=== PATIENT | female | born 1950 | race Caucasian/White ===

== ENCOUNTER → 2017-04-16 | Outpatient (CLI) | payer MEDICARE ==
[2017-04-16 12:53] LABS: BASO % 0.6 % (0.0-1.0); EOS # 0.2 K/mm3 (0.0-0.50); EOS % 3.8 % (0.0-3.0); LARGE UNSTAINED CELL # 0.1 K/mm3 (0.0-0.4); LARGE UNSTAINED CELL % 2.4 % (0.0-4.0); LYMPH # 1.9 K/mm3 (1.5-4.5); LYMPH % 39.4 % (24.0-44.0); MEAN CORPUSCULAR HGB CONC 34.3 g/dl (32.0-36.5); MEAN CORPUSCULAR VOLUME 96.2 fl (80.0-96.0); MONO # 0.5 K/mm3 (0.0-0.8); MONO % 9.9 % (0.0-5.0); NEUTROPHILS % 43.9 % (36.0-66.0); PLATELET COUNT, AUTOMATED 332 k/mm3 (150-450); RED CELL DISTRIBUTION WIDTH 13.2 % (11.5-14.5); WHITE BLOOD COUNT 4.6 K/mm3 (4.0-10.0)
[2017-04-16 13:11] LABS: ALBUMIN 4.1 GM/DL (3.2-5.2); ALBUMIN/GLOBULIN RATIO 1.21 (1.00-1.93); ALKALINE PHOSPHATASE 89 U/L (45-117); ALT/SGPT 44 U/L (12-78); ANION GAP 10 MEQ/L (8-16); AST/SGOT 34 U/L (15-37); BILIRUBIN,TOTAL 0.5 MG/DL (0.2-1.0); BLOOD UREA NITROGEN 17 MG/DL (7-18); CALCIUM LEVEL 9.5 MG/DL (8.8-10.2); CARBON DIOXIDE LEVEL 25 MEQ/L (21-32); CHLORIDE LEVEL 104 MEQ/L (98-107); CHOLESTEROL LEVEL 232 MG/DL (<200); CREATININE FOR GFR 0.85 MG/DL (0.55-1.02); FREE T4 0.84 NG/DL (0.76-1.46); GLOMERULAR FILTRATION RATE > 60.0 (>45); GLUCOSE, FASTING 95 MG/DL (80-110); POTASSIUM SERUM 4.3 MEQ/L (3.5-5.1); SODIUM LEVEL 139 MEQ/L (136-145); TOTAL PROTEIN 7.5 GM/DL (6.4-8.2); TRIGLYCERIDES LEVEL 122 MG/DL (<150)
== END ==
LOC: M SMT 08:05
PROVIDERS: ATTEND Physician Assistant Medical
DX: E03.9 Hypothyroidism, unspecified (principal); I10 Essential (primary) hypertension; E55.9 Vitamin D deficiency, unspecified; Z13.220 Encounter for screening for lipoid disorders

== ENCOUNTER → 2020-02-12 | Outpatient (REF) | payer MEDICARE ==
[2020-02-12 16:35] LABS: CHLAMYDIA DNA AMPLIFICATION NEGATIVE (NEGATIVE); GC DNA AMPLIFICATION NEGATIVE (NEGATIVE)
== END ==
LOC: M LAB REF 14:33
PROVIDERS: ATTEND Family Medicine
DX: N39.0 Urinary tract infection, site not specified (principal); N76.0 Acute vaginitis

== ENCOUNTER → 2020-04-15 | Outpatient (REF) | payer MEDICARE | LOC: M LAB REF 15:58 | PROVIDERS: ATTEND Family Medicine | DX: N76.0 Acute vaginitis (principal) ==

== ENCOUNTER → 2021-02-16 | Outpatient (REF) | payer MEDICARE ==
[2021-02-16 18:10] LABS: BASO % 0.2 % (0.0-1.0); EOS % 0.6 % (0.0-3.0); HEMATOCRIT 30.7 % (36.0-47.0); HEMOGLOBIN 10.2 g/dl (12.0-15.5); LYMPH # 1.3 10^3/uL (1.5-5.0); LYMPH % 27.3 % (24.0-44.0); MEAN CORPUSCULAR HEMOGLOBIN 33.3 pg (27.0-33.0); MEAN CORPUSCULAR HGB CONC 33.2 g/dl (32.0-36.5); MEAN CORPUSCULAR VOLUME 100.3 fl (80.0-96.0); MONO # 0.6 10^3/uL (0.0-0.8); MONO % 11.9 % (2.0-8.0); NEUTROPHILS # 2.8 10^3/uL (1.5-8.5); NEUTROPHILS % 59.8 % (36.0-66.0); PLATELET COUNT, AUTOMATED 510 10^3/uL (150-450); RED BLOOD COUNT 3.06 10^6/uL (4.00-5.40); WHITE BLOOD COUNT 4.7 10^3/uL (4.0-10.0)
[2021-02-16 18:25] LABS: ALT/SGPT 54 U/L (12-78); BILIRUBIN,TOTAL 0.7 MG/DL (0.2-1.0); BLOOD UREA NITROGEN 19 MG/DL (7-18); CALCIUM LEVEL 9.4 MG/DL (8.8-10.2); CARBON DIOXIDE LEVEL 29 MEQ/L (21-32); CHLORIDE LEVEL 104 MEQ/L (98-107); CHOLESTEROL LEVEL 183 MG/DL (<200); CHOLESTEROL RISK RATIO 2.859 (<5); FREE T4 1.01 NG/DL (0.76-1.46); GLOMERULAR FILTRATION RATE > 60.0 (>39); GLUCOSE, FASTING 88 MG/DL (70-100); HDL CHOLESTEROL 64 MG/DL (>40); LDL CHOLESTEROL 100 MG/DL (<100); NON-HDL-C 119 MG/DL; POTASSIUM SERUM 4.3 MEQ/L (3.5-5.1); SODIUM LEVEL 139 MEQ/L (136-145); TOTAL PROTEIN 6.8 GM/DL (6.4-8.2); TRIGLYCERIDES LEVEL 95 MG/DL (<150)
[2021-02-17 10:59] LABS: FERRITIN 64 NG/ML (8-252); IRON (FE) 103 UG/DL (50-170); PERCENT SATURATION 29.5 % (13.2-45.0); TOTAL IRON BINDING CAPACITY 349 UG/DL (250-450)
[2021-02-17 11:02] LABS: VITAMIN B12 LEVEL 345 PG/ML (247-911)
== END ==
LOC: M PLALAB 17:00
PROVIDERS: ATTEND Family Medicine
DX: E78.2 Mixed hyperlipidemia (principal); E03.9 Hypothyroidism, unspecified; K21.9 Gastro-esophageal reflux disease without esophagitis; D64.9 Anemia, unspecified; R63.4 Abnormal weight loss

== ENCOUNTER → 2021-03-03 | Outpatient (CLI) | payer MEDICARE ==
--- NOTE | 2021-03-03 14:14 | REPMRS ---
Patient History The patient states she has not had a clinical breast exam in over a year. Patient is postmenopausal. No known family history of cancer. Benign radio exam breast specimen of the right breast, October 17, 2015. Benign stereotatic loc for ea lesion of the right breast, October 17, 2015. No Hormone Replacement Therapy Patient states no breast complaints today. Patient has signed MRS History Sheet. Digital Woman Screen Mammo: March 03, 2021 - Exam #: [id number] Bilateral CC and MLO view(s) were taken. Technologist: Rowena Figueroa, Mer[employer] Prior study comparison: September 05, 2015, right breast digital mammo diagnostic unilateral, performed at [facility]. August 23, 2015, digital woman screen mammo performed at [facility]. FINDINGS: The breast tissue is heterogeneously dense. This may lower the sensitivity of mammography. Screening. Digital screening (2D) mammography was performed bilaterally in the CC and MLO projections. Additionally, breast tomosynthesis (3D mammography) was performed bilaterally in the CC and MLO projections. Todays exam was compared to the prior exams(s). By history, the patient has no complaints of a palpable breast abnormality or other significant breast complaints. The breasts are unchanged in size and shape. Once again, dense heterogenous fibroglandular elements are seen bilaterally in a stable appearing pattern but to such a degree that the sensitivity of the mammogram in detecting cancer is decreased.Calcifications are again seen in the breast/breasts. Some of these are in groups but no one group appears more suspicious than any other.There is stable post-procedural internal architectural distortion.There are no ramesh-soft tissue densities or spiculated masses. There is no internal architectural distortion. There are no suspicious ramesh-calcific clusters. Skin thickening or nipple retraction is not present. IMPRESSION: BI-RADS Category 2- Benign Findings(s). There is no evidence of malignant alteration of the breasts. Followup examination recommended in one year. The Volpara volumetric breast density category is C, the breasts are heterogenously dense which may obscure small masses. This mammogram was read with the assistance of [employer]Zenon Birst,an FDA approved computer aided detection system for mammography. The lifetime Tyrer-Cuzick score is 2.7% Negative x-ray reports should not delay surgical consultation if a dominant or clinically suspicious mass is present. Not all breast cancers can be identified by mammography. Therefore, we recommend that you continue to perform regular breast self-examination and physical examination and then promptly contact your physician of any concerns or changes. Adenosis and dense breasts may obscure an underlying neoplasm. Assessment: BI-RADS/ACR category 2 mammogram. Benign Findings. Recommendation Routine screening mammogram of both breasts in 1 year. Electronically Signed By: Jefferson Braswell DO 03/03/21 [id number]
== END ==
LOC: M WHC 12:50
PROVIDERS: ATTEND Family Medicine
DX: Z12.31 Encounter for screening mammogram for malignant neoplasm of breast (principal)

== ENCOUNTER 2021-04-13 10:53 | Inpatient (IN) | payer MEDICARE, SELFPAY ==
--- NOTE | 2021-04-13 11:25 | REPVR ---
PROCEDURE INFORMATION: Exam: CT Head Without Contrast Exam date and time: 04/13/2021 11:16 AM Age: 71 years old Clinical indication: Altered mental status/memory loss TECHNIQUE: Imaging protocol: Computed tomography of the head without contrast. Radiation optimization: All CT scans at this facility use at least one of these dose optimization techniques: automated exposure control; mA and/or kV adjustment per patient size (includes targeted exams where dose is matched to clinical indication); or iterative reconstruction. COMPARISON: No relevant prior studies available. FINDINGS: Brain: There is no acute intracranial hemorrhage or mass effect. Moderate diffuse volume loss is within the range of normal for patient age. There are small vessel ischemic changes within the periventricular and subcortical white matter, but the normal luna-white matter delineation is maintained. Chronic appearing lacunar infarcts involve the left basal ganglia. Cerebral ventricles: No ventriculomegaly. Paranasal sinuses: Visualized sinuses are unremarkable. No fluid levels. Mastoid air cells: There is focal fluid within left mastoid air cells Bones/joints: Unremarkable. No acute fracture. Soft tissues: Unremarkable. IMPRESSION: No acute hemorrhage or edema Electronically signed by: Rosamaria Manning On 04/13/2021 11:25:16 AM
[2021-04-13 11:38] LABS: ABG BASE EXCESS 0.9 (-2.0-2.0); ABG HCO3 24.3 MEQ/L (22.0-26.0); ABG PARTIAL PRESSURE CO2 34.8 mmHg (35.0-45.0); ABG PARTIAL PRESSURE O2 143.5 mmHg (75.0-100.0); ABG STANDARD HCO3 25.3 MEQ/L (22.0-26.0); ABG TOTAL CO2 25.4 MEQ/L (23.0-31.0); ABG pH (ARTERIAL) 7.462 UNITS (7.350-7.450)
[2021-04-13] MEDS ORDERED: NS 500 ML IV ONE (11:55)
[2021-04-13 12:52] LABS: HEMATOCRIT 35.7 % (36.0-47.0); HEMOGLOBIN 11.3 g/dl (12.0-15.5); MEAN CORPUSCULAR HEMOGLOBIN 32.7 pg (27.0-33.0); MEAN CORPUSCULAR HGB CONC 31.7 g/dl (32.0-36.5); MEAN CORPUSCULAR VOLUME 103.2 fl (80.0-96.0); PLATELET COUNT, AUTOMATED 245 10^3/uL (150-450); RED BLOOD COUNT 3.46 10^6/uL (4.00-5.40)
[2021-04-13 12:55] LABS: WHITE BLOOD COUNT 11.4 10^3/uL (4.0-10.0)
[2021-04-13 13:18] LABS: VENOUS BASE EXCESS 1.1 (-2.0-2.0); VENOUS HCO3 27.1 MEQ/L (23.0-27.0); VENOUS O2 SATURATION 69.5 % (60.0-80.0); VENOUS PARTIAL PRESSURE CO2 48.5 mmHg (38.0-50.0); VENOUS PARTIAL PRESSURE O2 40.6 mmHg (30.0-50.0); VENOUS PH 7.365 UNITS (7.330-7.430); VENOUS STANDARD HCO3 24.9 MEQ/L; VENOUS TOTAL CO2 28.6 MEQ/L (24.0-28.0)
--- NOTE | 2021-04-13 13:38 | REP ---
INDICATION: Altered Mental Status. COMPARISON: 08/23/2015. TECHNIQUE: Single portable AP view of the chest was performed. FINDINGS: There is mild cardiomegaly. Mild pleural and parenchymal fibrotic change in the left base is unchanged. No superimposed acute infiltrate is seen. There is calcification and tortuosity of the thoracic aorta. The mediastinal silhouette is unchanged. IMPRESSION: No acute pulmonary disease.Mild cardiomegaly and left basilar fibrotic change. <Electronically signed by Syed Patino > 04/13/21 [id number]
[2021-04-13] MEDS ORDERED: cefTRIAXone SOD 2 GM in D5W MINI-BAG PLUS 50 ML IV ONE (13:40)
[2021-04-13 13:50] LABS: LYMPHOCYTES 7 % (16-44); MONOCYTES 10 % (0-5); NEUTROPHILS 83 % (28-66)
[2021-04-13 13:54] LABS: ALBUMIN 4.2 GM/DL (3.2-5.2); BILIRUBIN,DIRECT 0.6 MG/DL (0.0-0.2); BILIRUBIN,TOTAL 1.7 MG/DL (0.2-1.0); CALCIUM LEVEL 10.4 MG/DL (8.8-10.2); CREATININE FOR GFR 1.03 MG/DL (0.55-1.30); GLOMERULAR FILTRATION RATE 56.1 (>39); POTASSIUM SERUM 4.4 MEQ/L (3.5-5.1); THYROID STIMULATING HORMONE 3.24 uIU/ML (0.358-3.740); TOTAL PROTEIN 7.5 GM/DL (6.4-8.2)
[2021-04-13 13:57] LABS: ANISOCYTOSIS 1+; PLATELET ESTIMATE NORMAL (NORMAL)
[2021-04-13 13:58] LABS: HYPOCHROMASIA 2+
[2021-04-13] MEDS ORDERED: ISOVUE-370 76% 100ML VIAL As Ordered ONE (14:52)
[2021-04-13] MEDS ORDERED: LIDOCAINE 1% MDV 20ML VIAL As Ordered ONE (15:14)
--- NOTE | 2021-04-13 15:32 | REP ---
INDICATION: Unknown COMPARISON: None. TECHNIQUE: Standard helical technique after the intravenous administration of 100 cc Isovue 370. FINDINGS: Curvilinear densities are seen in the left lung base likely subsegmental atelectatic and/or fibrotic changes. There are no pleural or pericardial effusions. There is cardiomegaly. The liver, gallbladder, spleen, pancreas, adrenal glands, and kidneys are within normal limits. The abdominal aorta and para-aortic regions are within normal limits. The bowel loops and the mesenteries are within normal limits. There is no free fluid or free air. There is no evidence of a mass or adenopathy. Bone window technique through the examination shows chronic spinal degenerative changes. There is a grade 1 L4 upon L5 spondylolisthesis. There is a 1 cm sized adipose only left inguinal hernia. IMPRESSION: There is no evidence of acute intra-abdominal or intrapelvic disease. Findings as described above. <Electronically signed by Jefferson Barswell > 04/13/21 [id number]
--- NOTE | 2021-04-13 15:37 | REP ---
INDICATION: Unknown COMPARISON: None TECHNIQUE: CT angiography of the chest attention pulmonary arteries after the intravenous administration of 75 cc Isovue 370 FINDINGS: There is excellent visualization of the pulmonary arterial vasculature. There are multiple filling defects seen in multiple pulmonary arteries seen bilaterally but right greater than left. There are no pleural or pericardial effusions. There is no mediastinal or hilar adenopathy. Evaluation of the lung barnhart shows respiratory motion artifact and scattered asymmetric densities which could obscure small nodule. Curvilinear densities are seen in the left lung base. There are no spiculated masses. Bone window technique throughout the exam shows the osseous structures to be within normal limits for the patient's age. IMPRESSION: 1. Multiple pulmonary emboli as described above. 2. Chronic lung field changes as described above. Since are no priors comparison three-month follow-up is suggested. 3. Other findings as described above. <Electronically signed by Jefferson Braswell > 04/13/21 [id number]
[2021-04-13] MEDS ORDERED: OMEP-218 PO (15:52)
[2021-04-13] MEDS ORDERED: LEVO50TA5 PO (15:52)
[2021-04-13] MEDS ORDERED: MED REC COMMENT (15:53)
[2021-04-13] MEDS ORDERED: D31000TA2 PO (15:53)
[2021-04-13] MEDS ORDERED: MIRT-62 PO (15:53)
[2021-04-13 16:15] LABS: RSV AMPLIFICATION NEGATIVE (NEGATIVE)
[2021-04-13 16:33] LABS: INR 1.18; PROTHROMBIN TIME 15.3 SECONDS (12.5-14.3)
[2021-04-13 16:34] LABS: PARTIAL THROMBOPLASTIN TIME 27.8 SECONDS (24.2-38.5)
[2021-04-13 16:35] LABS: PERCENT SATURATION 20.3 % (13.2-45.0)
[2021-04-13 17:02] LABS: FOLATE 4.8 NG/ML
--- NOTE | 2021-04-13 18:29 | REP ---
PROCEDURE NAME: PICC LINE INSERTION W/SITERITE CLINICAL INFORMATION: no vascular access. COMPARISON: None. PROCEDURE DESCRIPTION: The procedure was performed by PIA Camarillo, under the direct supervision of Dr. Patino. The risks and benefits of the procedure were explained to the patient and an informed consent was obtained both verbally and written. Directly prior to the start of the procedure a formal time-out was completed in the procedure room. The right basilic vein was localized using ultrasound guidance. The skin was prepped and draped in sterile fashion. One mL of 1% lidocaine 10 mg/mL was used as a local anesthetic. Using ultrasound guidance the right basilic vein was cannulated, and a 0.018 guidewire was inserted and advanced to the level of SVC using fluoroscopic guidance. The needle was removed and a 5.5 Tuvaluan dilator and peel-away sheath was inserted over the guidewire. A 5.5 Tuvaluan dual lumen catheter was cut to a length of 35 cm. The dilator was removed and the catheter was inserted over the guidewire with the tip ending at the level of the SVC. The peel-away sheath was removed and the catheter was flushed with heparinized saline as per hospital protocol. The catheter was affixed to the skin and a sterile dressing was applied. The patient tolerated the procedure well and there were no immediate complications. CONCLUSION: PICC line insertion into the right basilic vein. 0.2 minutes of fluoroscopy time was utilized for this procedure. Some fluoroscopic images are performed with last image hold technology. These images require no additional radiation. <Electronically signed by Jacinda Marcelino > 04/13/21 1712 <Electronically signed by Syed Patino > 04/13/21 [id number]
--- NOTE | 2021-04-13 18:38 | HPEPDOC ---
General Date of Admission Apr 13, 2021 at 15:47 Date of Service: Apr 13, 2021 Chief Complaint The patient is a 71-year-old female admitted with a reason for visit of Ams, Pulmonary Embolism. Source: Family, RN/MD History of Present Illness 71 year old female a resident of [facility] was brought to [facility] ED when she was found laying in the back seat of her car for unknown duration of time. Brother last saw her of 04/10/21. No one had spoken to her in the last 2 days and she had not picked up her phone. Patient had an upcoming appointment with PMD next week so brother went to her place to see if she needed blood tests done before the appointment and found that he could not get into her place and she would not answer the door. He called the adult care manager of the [facility] and then the door was opened and she was found laying on the back seat of her car. They could not get her out of the car so called EMS. As per brother patient has been having memory issues for the past 2 months. He and his daughter who is also the patient's second HCP had a meeting with the [facility] management as they had seen her walking around dirty, ungroomed and her apartment has been dirty and she has not been able to maintain it properly. The management wanted her to be moved to assisted living. Patient's mother in 2014 and after that she moved from [place] to [facility]. However she had not maintained any contact with her family till about 6 months ago when she started attending Saturday dinners at her brother's place. She has an upcoming appointment with neurology for yanet vizcarra for dementia. On my interview she just repeated my name could recognize her brother and tell me his name. Said no to some direct questions. Did not says any thing else. soon became uninterested and closed her eyes. No history could be gotten fromvega carrasco . All history take from [facility] and the ED staff. On arrival to ED she was found to be tachycardic in 120s, hypoxic to 80% in room air, Labs were also suggestive of dehydration with BUN and elevated calcium and elevated lactate. She was dirty and disheveled , had depends on with some urine and stool in it. She was also noted to have pressure injuries on the bony prominences of the left side of the body. CTA of the chest showed bilateral pulmonary embolism. CT of the abdomen and pelvis was negative. CT head There is no acute intracranial hemorrhage or mass effect. Moderate diffuse volume loss is within the range of normal for patient age. There are small vessel ischemic changes within the periventricular and subcortical white matter, but the normal luna-white matter delineation is maintained. Chronic appearing lacunar infarcts involve the left basal ganglia Home Medications Scheduled Cholecalciferol (Vitamin D3) (Vitamin D3) 1,000 Unit Tablet, 1,000 UNITS PO DAILY, (Reported) Levothyroxine Sodium (Levothyroxine Sodium) 50 Mcg Tablet, 50 MCG PO QAM, (Reported) Mirtazapine (Remeron) 15 Mg Tablet, 15 MG PO QHS, (Reported) Omeprazole (Omeprazole) 20 Mg Capsule.dr, 20 MG PO DAILY, (Reported) Miscellaneous Medications [Med Rec Comment] , (Reported) VERIFIED MED LIST AND ALLERGIES WITH OFFICE Allergies Coded Allergies: No Known Allergies (Verified Allergy, Unknown, 04/13/21) Past Medical History Medical History Hypothyroidism Memory problems possible dementia. Family History Significant Family History: Cancer (father at age 90 had colon cancer, Brother h/o prostate cancer), COPD, Heart disease (Mother at age 92 had congestive heart failure) Social History * Smoker: Denies Alcohol: Denies Drugs: denies A-FIB/CHADSVASC A-FIB History Current/History of A-Fib/PAF?: No Physical Examination General Exam: Positive: Cooperative, No Acute Distress, Other (somnolent) Eye Exam: Positive: PERRLA, Conjunctiva & lids normal, EOMI; Negative: Sclera icteric Neck Exam: Positive: Supple; Negative: JVD, thyromegaly Heart Exam: Positive: Tachycardic, Regular Rhythm, Normal S1, Normal S2; Negative: Rate Normal, Bradycardic, Irregular Rhythm, Gallops, Murmurs, Rubs Telemetry: Positive: Sinus, Tachycardia Abdomen Exam: Positive: Normal bowel sounds, Soft; Negative: Tenderness, Hepatospenomegaly Extremity Exam: Negative: Clubbing, Cyanosis, Edema Skin Exam: Positive: Other skin issue (pressure injury on left shoulder bony prominence, left forehead, left barnard, left hip) Psych Exam: Positive: Other (speaks only one or two words, open eyes when spoken to and tracks.) Vital Signs Vital Signs Date Time Temp Pulse Resp B/P (MAP) Pulse Ox O2 Delivery O2 Flow Rate FiO2 04/13/21 17:30 99.0 126 18 156/83 (107) 96 Nasal Cannula 2.0 Laboratory Data Labs 24H Laboratory Tests 2 04/13/21 10:58: Anion Gap 7L, Glomerular Filtration Rate 56.1, Osmolality 317H, Calcium Level 10.4H, Iron Level 68, Total Iron Binding Capacity 335, Transferrin % Saturation 20.3, Ferritin 78, Total Bilirubin 1.7H, Direct Bilirubin 0.6H, Aspartate Amino Transf (AST/SGOT) 46H, Alanine Aminotransferase (ALT/SGPT) 23, Alkaline Phosphatase 74, Ammonia 15, Total Creatine Kinase 883H, Total Protein 7.5, Albumin 4.2, Albumin/Globulin Ratio 1.3, Vitamin B12 Level 336, Folate 4.8, Thyroid Stimulating Hormone (TSH) 3.240 04/13/21 11:31: Blood Gas Bicarbonate Standard 25.3, Arterial Blood pH 7.462H, Arterial Blood Partial Pressure CO2 34.8L, Arterial Blood Partial Pressure O2 143.5H, Arterial Blood Total CO2 25.4, Arterial Blood HCO3 24.3, Arterial Blood Base Excess 0.9, Arterial Blood Oxygen Saturation 99.0 04/13/21 12:32: Neutrophils (%) (Auto) , Nucleated Red Blood Cells % (auto) 0.0, Neutrophils 83H, Lymphocytes (Manual) 7L, Monocytes (Manual) 10H, Hypochromasia 2+, Anisocytosis 1+, Macrocytosis 1+, Platelet Estimate NORMAL, Urine Color POONAM, Urine Appearance CLEAR, Urine pH 5.0, Urine Specific [place] Ari 1.026, Urine Protein 1+H, Urine Glucose (UA) 1+H, Urine Ketones TRACEH, Urine Blood NEGATIVE, Urine Nitrite NEGATIVE, Urine Bilirubin NEGATIVE, Urine Urobilinogen 4.0H, Urine Leukocyte Esterase TRACEH, Urine WBC (Auto) 3, Urine RBC (Auto) 5H, Urine Hyaline Casts (Auto) 0, Urine Bacteria (Auto) NEGATIVE, Urine Squamous Epithelial Cells 0, Urine Mucus (Auto) SMALL, Urine Sperm (Auto) , Lactic Acid Level 3.2*H 04/13/21 13:01: Blood Gas Bicarbonate Standard 24.9, Venous Blood pH 7.365, Venous Blood Partial Pressure CO2 48.5, Venous Blood Partial Pressure O2 40.6, Venous Blood Total Carbon Dioxide 28.6H, Venous Blood HCO3 27.1H, Venous Blood Oxygen Saturation 69.5, Venous Blood Base Excess 1.1, Carboxyhemoglobin 2.0H 04/13/21 13:02: Prothrombin Time 15.3H, Prothromb Time International Ratio 1.18, Activated Partial Thromboplast Time 27.8 04/13/21 13:06: POC Troponin I (Misc) 0.02 04/13/21 15:25: Coronavirus (COVID-19)(PCR) NEGATIVE, Influenza Type A (RT-PCR) NEGATIVE, Influenza Type B (RT-PCR) NEGATIVE, Respiratory Syncytial Virus (PCR) NEGATIVE 04/13/21 16:43: Lactic Acid Followup at 4 Hours 1.3 CBC/BMP Laboratory Tests 04/13/21 10:58 04/13/21 12:32 Microbiology Microbiology 04/13/21 Urine Culture, Received Pending 04/13/21 Blood Culture, Received Pending 04/13/21 Blood Culture, Received Pending Assessment/Plan 71 year old female a resident of [facility] with PMH of hypothyroidism, GERD, memory problems was brought to the ED when she was found laying in the back seat of her car for unknown duration of time. he was found to have bilateral pulmonary embolism, dehydration with likely underlying dementia. Bilateral pulmonary embolism will order hypercoagulable work up will get doppler of both the legs. oxygen supplementation lovenox bid. Acute hypoxic respiratory failure due to pulmonary embolism. oxygen supplementation. Dehydration will continue IVF Anemia with macrocytosis iron profile, Vit B12 and folate in range. Acute metabolic encephalopathy on the back ground of chronic memory issues this could be due to hypoxia and dehydration. CT head negative will have to get an MRI for this acute event to rule out stroke. Plan / VTE VTE Prophylaxis Ordered?: Yes AMANDA CM MD Apr 13, 2021 18:01
[2021-04-13 18:45] VITALS: BP 140/84
[2021-04-13] MEDS: NS 1,000 ML IV SCH (18:47)
--- NOTE | 2021-04-13 19:11 | REP ---
INDICATION: pulmonary embolism COMPARISON: None. TECHNIQUE: Real time compression and duplex Doppler interrogation of the bilateral lower extremity deep venous system is performed. Compression ultrasound is performed of the bilateral peroneal and posterior tibial veins. FINDINGS: The right common femoral, femoral and popliteal veins, as well as right posterior tibial and peroneal veins are fully compressible with transducer pressure. Normal internal flow is seen with no intraluminal thrombus. On the left there is occlusive thrombus in the left profunda vein. The left common femoral, femoral and popliteal veins are fully compressible with no intraluminal thrombus. There is occlusive thrombus throughout the left peroneal veins. IMPRESSION: Occlusive thrombus left profunda vein and left peroneal veins. Otherwise no evidence of DVT bilaterally in the lower extremities. <Electronically signed by Syed Patino > 04/13/21 [id number]
--- NOTE | 2021-04-13 21:24 | ECGEPIP ---
[facility] - ED Test Date: 2021-04-13 Pat Name: LUDY ROSENTHAL Department: Room: - Gender: Female Gallery Host: LR : 1950 Requested By: Charity Hebert Order Number: [id number] Reading MD: Fritz Tinoco Measurements Intervals [place] Rate: 141 P: -18 AK: 140 QRS: 5 QRSD: 64 T: 7 QT: 266 QTc: 407 Interpretive Statements Sinus tachycardia POOR R WAVE PROGRESSION BASELINE ARTIFACT AFFECTS INTERPRETATION NO PRIORS FOR COMPARISON Electronically Signed on 04-13-2021 21:24:35 EDT by Fritz Tinoco
[2021-04-13] MEDS: ENOXAPARIN 60MG/0.6ML SYRINGE (J1650 PER 10MG) SC SCH (22:23)
[2021-04-14] VITALS: BP 137/81
[2021-04-14] MEDS: NS 1,000 ML IV SCH (04:55)
[2021-04-14] MEDS: LEVOTHYROXINE 50MCG TABLET (0.05MG) PO SCH (05:48)
[2021-04-14 05:56] LABS: HEMATOCRIT 27.6 % (36.0-47.0); MEAN CORPUSCULAR HEMOGLOBIN 33.2 pg (27.0-33.0); MEAN CORPUSCULAR VOLUME 100.7 fl (80.0-96.0); PLATELET COUNT, AUTOMATED 217 10^3/uL (150-450); RED BLOOD COUNT 2.74 10^6/uL (4.00-5.40); WHITE BLOOD COUNT 6.6 10^3/uL (4.0-10.0)
[2021-04-14 06:08] LABS: HEMOGLOBIN 9.1 g/dl (12.0-15.5)
[2021-04-14 06:09] LABS: BLOOD UREA NITROGEN 37 MG/DL (7-18); C REACTIVE PROTEIN QUANTITATIV 7.71 MG/DL (0.00-0.30); CALCIUM LEVEL 8.8 MG/DL (8.8-10.2); CARBON DIOXIDE LEVEL 28 MEQ/L (21-32); CHLORIDE LEVEL 119 MEQ/L (98-107); CREATININE FOR GFR 0.71 MG/DL (0.55-1.30); GLOMERULAR FILTRATION RATE > 60.0 (>39); GLUCOSE, FASTING 95 MG/DL (70-100); POTASSIUM SERUM 3.7 MEQ/L (3.5-5.1); SODIUM LEVEL 151 MEQ/L (136-145)
[2021-04-14 07:53] LABS: ERYTHROCYTE SEDIMENTATION RATE 35 mm/hr (0-30)
[2021-04-14 08:00] VITALS: BP 135/92
[2021-04-14 08:02] LABS: ATYPICAL LYMPH 1 % (0-5); BASOPHILS 1 % (0-1); LYMPHOCYTES 16 % (16-44); MONOCYTES 20 % (0-5); NEUTROPHILS 61 % (28-66)
[2021-04-14 08:03] LABS: ANISOCYTOSIS 1+; PLATELET ESTIMATE NORMAL (NORMAL)
[2021-04-14] MEDS: OMEPRAZOLE 20 MG CAP PO SCH (09:08)
[2021-04-14] MEDS: D5W 1,000 ML IV SCH ×2 (09:08→21:07)
[2021-04-14] MEDS: ENOXAPARIN 60MG/0.6ML SYRINGE (J1650 PER 10MG) SC SCH ×2 (09:09→21:07)
[2021-04-14] MEDS ORDERED: SLF 3 ML SYR IV PRN (09:25)
--- NOTE | 2021-04-14 10:18 | IPNPDOC ---
Subjective Date Seen The patient was seen on 04/14/21. Subjective Chief Complaint/HPI Awake today, following commands, answering some questions. Moving all 4 extremities but slow and stiff. Able to get out few full sentences rapidly tehn words. Was able to tell me what she likes for breakfast how she drinks her coffee. Objective Physical Examination General Exam: Positive: Alert, Cooperative, No Acute Distress Eye Exam: Positive: PERRLA, Conjunctiva & lids normal, EOMI; Negative: Sclera icteric Neck Exam: Positive: Supple; Negative: JVD, thyromegaly Chest Exam: Positive: Clear to auscultation, Normal air movement Heart Exam: Positive: Rate Normal, Regular Rhythm, Normal S1, Normal S2, Murmurs (systolic murmur present. ); Negative: Bradycardic, Irregular Rhythm, Gallops, Rubs Telemetry: Positive: No significant arrhythmia Abdomen Exam: Positive: Normal bowel sounds, Soft; Negative: Tenderness, Hepatospenomegaly Extremity Exam: Negative: Clubbing, Cyanosis, Edema Skin Exam: Positive: Other skin issue (pressure injury on left shoulder bony prominence, left forehead, left barnard, left hip) Psych Exam: Positive: Other (speaks only one or two words, open eyes when spo javier to and tracks.) Assessment /Plan Assessment 71 year old female a resident of [facility] with PMH of hypothyroidism, GERD, memory problems was brought to the ED when she was found laying in the back seat of her car for unknown duration of time. he was found to have bilateral pulmonary embolism, dehydration with likely underlying dementia. Bilateral pulmonary embolism likely provoked / left peroneal DVT. from laying in one position for about 2 days with dehydration. has left peroneal vein occlusive thrombus. She was laying on her left side with pressure point injuries on the bony prominences on the left. hypercoagulable work up sent will get doppler of both the legs. oxygen supplementation lovenox bid. Hypernatremia cahnge IVF to dex. Acute hypoxic respiratory failure due to pulmonary embolism. oxygen supplementation. Dehydration resolved. Anemia with macrocytosis iron profile, Vit B12 and folate in range. Acute metabolic encephalopathy on the back ground of chronic memory issues this could be due to hypoxia and dehydration. CT head negative acute encephalopathy is resolving. Parkinsonism with dementia. Has rigidity, difficult in getting words out then a rapid fire sentence. bilateral hand tremors, perioral tremors. Plan/VTE VTE Prophylaxis Ordered?: Yes VS, I&O, 24H, Fishbone Vital Signs/I&O Vital Signs Date Time Temp Pulse Resp B/P (MAP) Pulse Ox O2 Delivery O2 Flow Rate FiO2 04/14/21 08:00 98.5 121 19 135/92 (106) 96 High Flow Cannula 4.0 I&O- Last 24 Hours up to 6 AM 04/14/21 06:00 Intake Total 0 ml Output Total 0 ml Balance 0 ml Laboratory Data 24H LABS Laboratory Tests 2 04/13/21 10:58: Anion Gap 7L, Glomerular Filtration Rate 56.1, Osmolality 317H, Calcium Level 10.4H, Iron Level 68, Total Iron Binding Capacity 335, Transferrin % Saturation 20.3, Ferritin 78, Total Bilirubin 1.7H, Direct Bilirubin 0.6H, Aspartate Amino Transf (AST/SGOT) 46H, Alanine Aminotransferase (ALT/SGPT) 23, Alkaline Phosphatase 74, Ammonia 15, Total Creatine Kinase 883H, Total Protein 7.5, Albumin 4.2, Albumin/Globulin Ratio 1.3, Vitamin B12 Level 336, Folate 4.8, Thyroid Stimulating Hormone (TSH) 3.240 04/13/21 11:31: Blood Gas Bicarbonate Standard 25.3, Arterial Blood pH 7.462H, Arterial Blood Partial Pressure CO2 34.8L, Arterial Blood Partial Pressure O2 143.5H, Arterial Blood Total CO2 25.4, Arterial Blood HCO3 24.3, Arterial Blood Base Excess 0.9, Arterial Blood Oxygen Saturation 99.0 04/13/21 12:32: Neutrophils (%) (Auto) , Nucleated Red Blood Cells % (auto) 0.0, Neutrophils 83H, Lymphocytes (Manual) 7L, Monocytes (Manual) 10H, Hypochromasia 2+, Anisocytosis 1+, Macrocytosis 1+, Platelet Estimate NORMAL, Urine Color POONAM, Urine Appearance CLEAR, Urine pH 5.0, Urine Specific Langley 1.026, Urine Protein 1+H, Urine Glucose (UA) 1+H, Urine Ketones TRACEH, Urine Blood NEGATIVE, Urine Nitrite NEGATIVE, Urine Bilirubin NEGATIVE, Urine Urobilinogen 4.0H, Urine Leukocyte Esterase TRACEH, Urine WBC (Auto) 3, Urine RBC (Auto) 5H, Urine Hyaline Casts (Auto) 0, Urine Bacteria (Auto) NEGATIVE, Urine Squamous Epithelial Cells 0, Urine Mucus (Auto) SMALL, Urine Sperm (Auto) , Lactic Acid Level 3.2*H 04/13/21 13:01: Blood Gas Bicarbonate Standard 24.9, Venous Blood pH 7.365, Venous Blood Partial Pressure CO2 48.5, Venous Blood Partial Pressure O2 40.6, Venous Blood Total Carbon Dioxide 28.6H, Venous Blood HCO3 27.1H, Venous Blood Oxygen Saturation 69.5, Venous Blood Base Excess 1.1, Carboxyhemoglobin 2.0H 04/13/21 13:02: Prothrombin Time 15.3H, Prothromb Time International Ratio 1.18, Activated Partial Thromboplast Time 27.8 04/13/21 13:06: POC Troponin I (Misc) 0.02 04/13/21 15:25: Coronavirus (COVID-19)(PCR) NEGATIVE, Influenza Type A (RT-PCR) NEGATIVE, Influenza Type B (RT-PCR) NEGATIVE, Respiratory Syncytial Virus (PCR) NEGATIVE 04/13/21 16:43: Lactic Acid Followup at 4 Hours 1.3 04/14/21 05:28: Immature Granulocyte % (Auto) , Neutrophils (%) (Auto) , Nucleated Red Blood Cells % (auto) 0.0, Neutrophils 61, Band Neutrophils 1, Lymphocytes (Manual) 16, Monocytes (Manual) 20H, Basophils (Manual) 1, Atypical Lymphocytes 1, Anisocytosis 1+, Macrocytosis 1+, Platelet Estimate NORMAL, Erythrocyte Sedimentation Rate 35H, Anion Gap 4L, Glomerular Filtration Rate > 60.0, Calcium Level 8.8#, C-Reactive Protein, Quantitative 7.71H CBC/BMP Laboratory Tests 04/13/21 10:58 04/13/21 12:32 04/14/21 05:28 Microbiology Microbiology 04/13/21 Urine Culture - Final, Complete 04/13/21 Blood Culture, Received Pending 04/13/21 Blood Culture, Received Pending AMANDA CM MD Apr 14, 2021 10:18
[2021-04-14 12:00] VITALS: BP 135/70
[2021-04-14] MEDS ORDERED: SODIUM CHLORIDE 0.9% INJ 10 ML SYR IV PRN (12:50)
[2021-04-14] MEDS: SLF 3 ML SYR IV SCH ×2 (15:00→21:07)
[2021-04-14 16:00] VITALS: BP 137/73
[2021-04-14] MEDS: SODIUM CHLORIDE 0.9% INJ 10 ML SYR IV SCH (19:58)
[2021-04-14 20:00] VITALS: BP 141/68
[2021-04-14 20:19] LABS: BLOOD UREA NITROGEN 33 MG/DL (7-18); CALCIUM LEVEL 8.5 MG/DL (8.8-10.2); CARBON DIOXIDE LEVEL 24 MEQ/L (21-32); CHLORIDE LEVEL 116 MEQ/L (98-107); GLOMERULAR FILTRATION RATE > 60.0 (>39); GLUCOSE, FASTING 103 MG/DL (70-100); POTASSIUM SERUM 3.3 MEQ/L (3.5-5.1); SODIUM LEVEL 146 MEQ/L (136-145)
[2021-04-15] VITALS: BP 129/70
[2021-04-15 04:00] VITALS: BP 144/74
[2021-04-15] MEDS: LEVOTHYROXINE 50MCG TABLET (0.05MG) PO SCH ×2 (05:48→06:08)
[2021-04-15] MEDS: SODIUM CHLORIDE 0.9% INJ 10 ML SYR IV SCH ×2 (05:48→17:07)
[2021-04-15] MEDS: SLF 3 ML SYR IV SCH ×3 (05:48→22:55)
[2021-04-15 05:53] LABS: HEMATOCRIT 23.8 % (36.0-47.0); HEMOGLOBIN 8.1 g/dl (12.0-15.5); MEAN CORPUSCULAR HEMOGLOBIN 33.9 pg (27.0-33.0); MEAN CORPUSCULAR VOLUME 99.6 fl (80.0-96.0); PLATELET COUNT, AUTOMATED 220 10^3/uL (150-450); RED BLOOD COUNT 2.39 10^6/uL (4.00-5.40); WHITE BLOOD COUNT 5.2 10^3/uL (4.0-10.0)
[2021-04-15 06:08] LABS: BLOOD UREA NITROGEN 26 MG/DL (7-18); CALCIUM LEVEL 8.1 MG/DL (8.8-10.2); CARBON DIOXIDE LEVEL 27 MEQ/L (21-32); CHLORIDE LEVEL 111 MEQ/L (98-107); CREATININE FOR GFR 0.56 MG/DL (0.55-1.30); GLOMERULAR FILTRATION RATE > 60.0 (>39); GLUCOSE, FASTING 96 MG/DL (70-100); POTASSIUM SERUM 3.5 MEQ/L (3.5-5.1); SODIUM LEVEL 142 MEQ/L (136-145)
[2021-04-15 06:35] LABS: ANISOCYTOSIS 1+; ATYPICAL LYMPH 4 % (0-5); BASOPHILS 1 % (0-1); EOSINOPHILS 4 % (0-3); LYMPHOCYTES 22 % (16-44); MONOCYTES 11 % (0-5); NEUTROPHILS 58 % (28-66)
[2021-04-15 06:36] LABS: PLATELET ESTIMATE NORMAL (NORMAL); POIKILOCYTOSIS 1+; POLYCHROMASIA 1+
[2021-04-15 08:00] VITALS: BP 134/78
--- NOTE | 2021-04-15 11:10 | IPNPDOC ---
Subjective Date Seen The patient was seen on 04/15/21. Subjective Chief Complaint/HPI Awake and alert could tell me she is in hospital but could not tell me the name. Very slow to respond to questions. No overnight events. Remains on oxygen. telemetry does show short bursts few seconds of SVT/ afib. denies any shortness of breath. Objective Physical Examination General Exam: Positive: Alert, Cooperative, No Acute Distress Eye Exam: Positive: PERRLA, Conjunctiva & lids normal, EOMI; Negative: Sclera icteric Neck Exam: Positive: Supple; Negative: JVD, thyromegaly Chest Exam: Positive: Clear to auscultation, Normal air movement Heart Exam: Positive: Rate Normal, Regular Rhythm, Normal S1, Normal S2, Murmurs (systolic murmur present. ); Negative: Bradycardic, Irregular Rhythm, Gallops, Rubs Telemetry: Positive: No significant arrhythmia Abdomen Exam: Positive: Normal bowel sounds, Soft; Negative: Tenderness, Hepatospenomegaly Extremity Exam: Negative: Clubbing, Cyanosis, Edema Skin Exam: Positive: Other skin issue (pressure injury on left shoulder bony prominence, left forehead, left barnard, left hip) Psych Exam: Positive: Other (speaks only one or two words, open eyes when spoken to and tracks.) Assessment /Plan Assessment 71 year old female a resident of [facility] with PMH of hypothyroidism, GERD, memory problems was brought to the ED when she was found laying in the back seat of her car for unknown duration of time. he was found to have bilateral pulmonary embolism, dehydration with likely underlying dementia. Bilateral pulmonary embolism likely provoked / left peroneal DVT. from laying in one position for about 2 days with dehydration. has left peroneal vein occlusive thrombus. She was laying on her left side with pressure point injuries on the bony prominences on the left. hypercoagulable work up sent lovenox bid. Hypernatremia/ dehydration resolved. Acute hypoxic respiratory failure due to pulmonary embolism. oxygen supplementation. blood culture positive 1/2 bottles gram positive cocci in clusters likely contaminant. follow up final cultures. Anemia with macrocytosis iron profile, Vit B12 and folate in range. Acute metabolic encephalopathy on the back ground of chronic memory issues this could be due to hypoxia and dehydration. CT head negative acute encephalopathy is resolving. Parkinsonism with dementia. Has rigidity, difficult in getting words out then a rapid fire sentence. bilateral hand tremors, perioral tremors. neurology consulted. Dr Whipple. may be Lewy body dementia. Plan/VTE VTE Prophylaxis Ordered?: Yes VS, I&O, 24H, Fishbone Vital Signs/I&O Vital Signs Date Time Temp Pulse Resp B/P (MAP) Pulse Ox O2 Delivery O2 Flow Rate FiO2 04/15/21 08:00 98.6 79 17 134/78 (96) 100 High Flow Cannula 4.0 I&O- Last 24 Hours up to 6 AM 04/15/21 06:00 Intake Total 2100 ml Output Total 300 ml Balance 1800 ml Laboratory Data 24H LABS Laboratory Tests 2 04/14/21 19:40: Anion Gap 6L, Glomerular Filtration Rate > 60.0, Calcium Level 8.5L 04/15/21 05:30: Anion Gap 4L, Glomerular Filtration Rate > 60.0, Calcium Level 8.1L, Immature Granulocyte % (Auto) , Neutrophils (%) (Auto) , Nucleated Red Blood Cells % (auto) 0.0, Neutrophils 58, Lymphocytes (Manual) 22, Monocytes (Manual) 11H, Eosinophils (Manual) 4H, Basophils (Manual) 1, Atypical Lymphocytes 4, Polychro masia 1+, Poikilocytosis 1+, Anisocytosis 1+, Macrocytosis 1+, Platelet Estimate NORMAL CBC/BMP Laboratory Tests 04/14/21 19:40 04/15/21 05:30 Microbiology Microbiology 04/13/21 Urine Culture - Final, Complete 04/13/21 Blood Culture - Preliminary, Resulted No growth after 24 hours . All specim... 04/13/21 Blood Culture - Preliminary, Resulted AMANDA CM MD Apr 15, 2021 11:10
[2021-04-15 12:00] VITALS: BP 145/74
[2021-04-15] MEDS: OMEPRAZOLE 20 MG CAP PO SCH (12:21)
[2021-04-15] MEDS: ENOXAPARIN 60MG/0.6ML SYRINGE (J1650 PER 10MG) SC SCH ×2 (12:22→20:03)
[2021-04-15 16:00] VITALS: BP 136/64
[2021-04-15 20:00] VITALS: BP 141/79
[2021-04-16] VITALS: BP 128/73
[2021-04-16 04:00] VITALS: BP 14/81
[2021-04-16] MEDS: LEVOTHYROXINE 50MCG TABLET (0.05MG) PO SCH (05:41)
[2021-04-16] MEDS: SODIUM CHLORIDE 0.9% INJ 10 ML SYR IV SCH ×2 (05:41→17:34)
[2021-04-16] MEDS: SLF 3 ML SYR IV SCH ×3 (05:42→20:55)
[2021-04-16 06:01] LABS: HEMATOCRIT 24.6 % (36.0-47.0); HEMOGLOBIN 8.5 g/dl (12.0-15.5); MEAN CORPUSCULAR HEMOGLOBIN 33.5 pg (27.0-33.0); MEAN CORPUSCULAR HGB CONC 34.6 g/dl (32.0-36.5); MEAN CORPUSCULAR VOLUME 96.9 fl (80.0-96.0); PLATELET COUNT, AUTOMATED 241 10^3/uL (150-450); RED BLOOD COUNT 2.54 10^6/uL (4.00-5.40); WHITE BLOOD COUNT 4.1 10^3/uL (4.0-10.0)
[2021-04-16 06:16] LABS: BLOOD UREA NITROGEN 18 MG/DL (7-18); CALCIUM LEVEL 8.5 MG/DL (8.8-10.2); CARBON DIOXIDE LEVEL 27 MEQ/L (21-32); CHLORIDE LEVEL 112 MEQ/L (98-107); CREATININE FOR GFR 0.59 MG/DL (0.55-1.30); GLOMERULAR FILTRATION RATE > 60.0 (>39); GLUCOSE, FASTING 92 MG/DL (70-100); POTASSIUM SERUM 3.7 MEQ/L (3.5-5.1); SODIUM LEVEL 143 MEQ/L (136-145)
[2021-04-16 06:25] LABS: ANISOCYTOSIS 1+; ATYPICAL LYMPH 4 % (0-5); EOSINOPHILS 3 % (0-3); LYMPHOCYTES 32 % (16-44); MONOCYTES 16 % (0-5); NEUTROPHILS 45 % (28-66); PLATELET ESTIMATE NORMAL (NORMAL); POIKILOCYTOSIS 1+; POLYCHROMASIA 1+
[2021-04-16 08:00] VITALS: BP 123/76
[2021-04-16] MEDS: DONEPEZIL 5 MG TAB PO SCH (10:51)
[2021-04-16] MEDS: OMEPRAZOLE 20 MG CAP PO SCH (10:51)
[2021-04-16] MEDS: ENOXAPARIN 60MG/0.6ML SYRINGE (J1650 PER 10MG) SC SCH ×2 (10:51→21:02)
--- NOTE | 2021-04-16 14:12 | CR ---
CONSULTATION DATE: 04/14/2021 REFERRING PHYSICIAN: Kaylie Solorzano M.D. REASON FOR CONSULTATION: Altered mental status and tremor with decline in function and activities. HISTORY OF PRESENT ILLNESS: Fariha Hughes is a 71-year-old woman, a resident of [facility], who was brought to [facility] after being found laying in the back seat of a car for an unknown duration of time. Brother last saw her on April 10, 2021. No one has spoken to her for the last two days. She had not picked up her phone. Patient had an upcoming appointment with her primary care physician next week and brother went to see her to see if she needed blood tests before her appointment and could not get hold of her. He was unable to get inside her place and she did not answer the door. Brother called the pharmacy operations manager and they opened the door and she was found laying on the back seat of her car. They could not get her out of the car so they called [facility] ([facility]). Brother has noted memory issues for the last two months. He and his daughter, who is the patient's healthcare proxy, had a meeting with management at [facility], that they had seen her walking around dirty and un-groomed and her apartment was dirty and she was unable to maintain it properly. They wanted her to be moved to an assisted living facility. Patient's mother in 2014 and she had moved from [place] to [facility] in 2014. She had not maintained any contact with her family until six months ago. She started attending Saturday dinners at her brother's place. Patient was referred to our office for evaluation of dementia and had an upcoming appointment in a couple of weeks. When I saw the patient in the hospital, she was unable to provide any meaningful history. Most of the information was obtained from electronic medical records and Dr. Kaylie Solorzano. Primary care physician had noted decline in her activities, difficulty walking, tremor and there was concern for Parkinsonism. In the emergency department upon her arrival, she was noted to be tachycardic with pulse in the 120s, hypoxic, 80% on room air. She was dehydrated with elevation of her BUN, calcium and lactic acid. She was dirty, disheveled, and had urine and stool in her Depends. She was noted to have pressure injuries on the bony prominences of the left side of her body. CT scan of head showed moderate volume loss and small vessel ischemic disease of the brain. CTA of chest showed bilateral pulmonary emboli. DIAGNOSTIC STUDIES: CT scan of the head was reviewed and showed moderate atrophy and small vessel ischemic disease of the brain. Hemoglobin was 9.1. Erythrocyte sedimentation rate (ESR) 35. Lactic acid 3.2. Vitamin B12 was 336. C-reactive protein (CRP) 7.7. Sodium 151. HOME MEDICATIONS: - vitamin D3 1000 units daily - levothyroxine 50 mcg by mouth daily - mirtazapine 15 mg by mouth at bedtime - omeprazole 20 mg by mouth daily ALLERGIES: None. PAST MEDICAL HISTORY: 1. Hypothyroidism. 2. Memory problems with dementia. FAMILY HISTORY: Mother with history of colon cancer and brother with history of prostate cancer. SOCIAL HISTORY: She denies smoking, alcohol and illicit drugs. REVIEW OF SYSTEMS: All systems were reviewed and found to be noncontributory except as mentioned in the history of present illness. PHYSICAL EXAMINATION: Temperature 99.1, pulse 122, respiratory rate 18, blood pressure 135/70, 97% saturation on 2 liters nasal cannula oxygen. HEART: Regular rate and rhythm. LUNGS: Clear to auscultation. ABDOMEN: Soft, nontender, nondistended. EXTREMITIES: No pedal edema. MUSCULOSKELETAL: No abnormalities. SKIN: No rash. NEUROLOGIC: No signs of meningeal irritation. Patient is awake, alert, oriented to self mostly. She was unable to tell me day, date, month, year, name of President, city, state and name of hospital. She was unable to serial 7s. Her recall was zero/3 at five minutes. She asked me a few times why did bread come with her dinner. She was trying to clean her teeth with her straw. She was able to follow one-step commands. She was able to move all four extremities equally well. There was no dysmetria. Gait testing could not be performed. She has bilateral cogwheel rigidity. The examination could not be performed reliably. ASSESSMENT: 1. Suspected Lewy Body dementia with Parkinsonism and cognitive impairment. 2. Difficulty and decline in activities of daily living (ADLs) and memory related to above. PLAN: 1. Trial of donepezil 5 mg by mouth in the morning and slowly increase it. 2. Trial of carbidopa/levodopa, but it may increase hallucinations and potentially may worsen cognition, which will also be confirmatory towards diagnosis of Lewy Body dementia. 3. She will likely need placement to an assisted living facility. 4. Follow with our office within 1-2 weeks after hospital discharge.
[2021-04-16 19:10] VITALS: BP 130/77
[2021-04-16 22:00] VITALS: BP 128/78
--- NOTE | 2021-04-16 23:02 | IPNPDOC ---
Subjective Date Seen The patient was seen on 04/16/21. Subjective Chief Complaint/HPI No issues overnight. Patient about the same, speaks one or two words then would say a full sentence, very slow to respond. Needing to be fed. Objective Physical Examination General Exam: Positive: Alert, Cooperative, No Acute Distress Eye Exam: Positive: PERRLA, Conjunctiva & lids normal, EOMI; Negative: Sclera icteric Neck Exam: Positive: Supple; Negative: JVD, thyromegaly Chest Exam: Positive: Clear to auscultation, Normal air movement Heart Exam: Positive: Rate Normal, Regular Rhythm, Normal S1, Normal S2, Murmurs (systolic murmur present. ); Negative: Bradycardic, Irregular Rhythm, Gallops, Rubs Telemetry: Positive: No significant arrhythmia Abdomen Exam: Positive: Normal bowel sounds, Soft; Negative: Tenderness, Hepatospenomegaly Extremity Exam: Negative: Clubbing, Cyanosis, Edema Skin Exam: Positive: Other skin issue (pressure injury on left shoulder bony prominence, left forehead, left barnard, left hip) Psych Exam: Positive: Other (speaks only one or two words, open eyes when spoken to and tracks.) Assessment /Plan Assessment 71 year old female a resident of [facility] with PMH of hypothyroidism, GERD, memory problems was brought to the ED when she was found laying in the back seat of her car for unknown duration of time. he was found to have bilateral pulmonary embolism, dehydration with likely underlying dementia. Bilateral pulmonary embolism likely provoked / left peroneal DVT. from laying in one position for about 2 days with dehydration. has left peroneal vein occlusive thrombus. She was laying on her left side with pressure point injuries on the bony prominences on the left. hypercoagulable work up sent lovenox bid. Hypernatremia/ dehydration resolved. Acute hypoxic respiratory failure due to pulmonary embolism. oxygen supplementation. blood culture positive 1/2 bottles staph epi , contaminant. Anemia with macrocytosis iron profile, Vit B12 and folate in range. Acute metabolic encephalopathy on the back ground of chronic memory issues this could be due to hypoxia and dehydration. CT head negative acute encephalopathy is resolving. Parkinsonism with dementia. Has rigidity, difficult in getting words out then a rapid fire sentence. bilateral hand tremors, perioral tremors. neurology consulted. Dr Whipple. may be Lewy body dementia. Appreciate Neurology evaluation. Trial of Donepezil started Dispo: will need placement Plan/VTE VTE Prophylaxis Ordered?: Yes VS, I&O, 24H, Fishbone Vital Signs/I&O Vital Signs Date Time Temp Pulse Resp B/P (MAP) Pulse Ox O2 Delivery O2 Flow Rate FiO2 04/16/21 08:00 98.1 71 17 123/76 (92) 94 High Flow Cannula 2.0 I&O- Last 24 Hours up to 6 AM 04/16/21 06:00 Intake Total 540 ml Output Total 800 ml Balance -260 ml Laboratory Data 24H LABS Laboratory Tests 2 04/16/21 03:57: Bedside Glucose (Misc Panel) 101 04/16/21 05:17: Neutrophils (%) (Auto) , Nucleated Red Blood Cells % (auto) 0.0, Neutrophils 45, Lymphocytes (Manual) 32, Monocytes (Manual) 16H, Eosinophils (Manual) 3, Atypical Lymphocytes 4, Polychromasia 1+, Poikilocytosis 1+, Anisocytosis 1+, Platelet Estimate NORMAL, Anion Gap 4L, Glomerular Filtration Rate > 60.0, Calcium Level 8.5L CBC/BMP Laboratory Tests 04/16/21 05:17 Microbiology Microbiology 04/13/21 Urine Culture - Final, Complete 04/13/21 Blood Culture - Preliminary, Resulted No Growth after 48 hours. All Specime... 04/13/21 Blood Culture - Final, Complete Staphylococcus Epidermidis AMANDA CM MD Apr 16, 2021 09:12
[2021-04-17] MEDS: LEVOTHYROXINE 50MCG TABLET (0.05MG) PO SCH (05:27)
[2021-04-17 05:46] LABS: HEMATOCRIT 24.4 % (36.0-47.0); HEMOGLOBIN 8.4 g/dl (12.0-15.5); MEAN CORPUSCULAR HEMOGLOBIN 33.2 pg (27.0-33.0); MEAN CORPUSCULAR HGB CONC 34.4 g/dl (32.0-36.5); MEAN CORPUSCULAR VOLUME 96.4 fl (80.0-96.0); PLATELET COUNT, AUTOMATED 238 10^3/uL (150-450); RED BLOOD COUNT 2.53 10^6/uL (4.00-5.40); WHITE BLOOD COUNT 3.9 10^3/uL (4.0-10.0)
[2021-04-17 06:00] VITALS: BP 148/70
[2021-04-17 06:19] LABS: ANISOCYTOSIS 1+; ATYPICAL LYMPH 1 % (0-5); BASOPHILS 4 % (0-1); EOSINOPHILS 2 % (0-3); LYMPHOCYTES 41 % (16-44); MONOCYTES 8 % (0-5); NEUTROPHILS 44 % (28-66); PLATELET ESTIMATE NORMAL (NORMAL)
[2021-04-17 06:20] LABS: BLOOD UREA NITROGEN 15 MG/DL (7-18); CALCIUM LEVEL 8.6 MG/DL (8.8-10.2); CARBON DIOXIDE LEVEL 27 MEQ/L (21-32); CHLORIDE LEVEL 111 MEQ/L (98-107); CREATININE FOR GFR 0.52 MG/DL (0.55-1.30); GLOMERULAR FILTRATION RATE > 60.0 (>39); GLUCOSE, FASTING 87 MG/DL (70-100); POTASSIUM SERUM 3.7 MEQ/L (3.5-5.1); SODIUM LEVEL 143 MEQ/L (136-145)
[2021-04-17] MEDS: DONEPEZIL 5 MG TAB PO SCH (08:30)
[2021-04-17] MEDS: OMEPRAZOLE 20 MG CAP PO SCH (08:30)
[2021-04-17] MEDS: ENOXAPARIN 60MG/0.6ML SYRINGE (J1650 PER 10MG) SC SCH ×2 (08:31→20:40)
--- NOTE | 2021-04-17 10:34 | IPNPDOC ---
Subjective Date Seen The patient was seen on 04/17/21. Subjective Chief Complaint/HPI Sitting up in chair, more awake and alert and conversant today. Could tell me she was in hospital and told me what she had for breakfast. Off oxygen now. Objective Physical Examination General Exam: Positive: Alert, Cooperative, No Acute Distress Eye Exam: Positive: PERRLA, Conjunctiva & lids normal, EOMI Neck Exam: Positive: Supple Chest Exam: Positive: Clear to auscultation, Normal air movement Heart Exam: Positive: Rate Normal, Regular Rhythm, Normal S1, Normal S2, Murmurs Telemetry: Positive: No significant arrhythmia Abdomen Exam: Positive: Normal bowel sounds, Soft Extremity Exam: Negative: Clubbing, Cyanosis, Edema Skin Exam: Positive: Other skin issue Psych Exam: Positive: Other Assessment /Plan Assessment 71 year old female a resident of [facility] with PMH of hypothyroidism, GERD, memory problems was brought to the ED when she was found laying in the back seat of her car for unknown duration of time. he was found to have bilateral pulmonary embolism, dehydration with likely underlying dementia. Bilateral pulmonary embolism likely provoked / left peroneal DVT. from laying in one position for about 2 days with dehydration. has left peroneal vein occlusive thrombus. She was laying on her left side with pressure point injuries on the bony prominences on the left. hypercoagulable work up sent lovenox bid. Hypernatremia/ dehydration resolved. Acute hypoxic respiratory failure due to pulmonary embolism. now resolved. blood culture positive 1/2 bottles staph epi , contaminant. Anemia with macrocytosis iron profile, Vit B12 and folate in range. Acute metabolic encephalopathy on the back ground of chronic memory issues this could be due to hypoxia and dehydration. CT head negative acute encephalopathy is resolving. Parkinsonism with dementia. Has rigidity, slow stooped gait, difficult in getting words out then a rapid fire sentence. bilateral hand tremors, perioral tremors. neurology consulted. Dr Whipple. Likely Lewy body dementia. Appreciate Neurology evaluation. Trial of Donepezil started Dispo: will need placement Plan/VTE VTE Prophylaxis Ordered?: Yes VS, I&O, 24H, Fishbone Vital Signs/I&O Vital Signs Date Time Temp Pulse Resp B/P (MAP) Pulse Ox O2 Delivery O2 Flow Rate FiO2 04/17/21 06:00 97.5 94 18 148/70 (96) 97 Room Air 04/16/21 08:00 2.0 I&O- Last 24 Hours up to 6 AM 04/17/21 06:00 Intake Total 460 ml Output Total 720 ml Balance -260 ml Laboratory Data 24H LABS Laboratory Tests 2 04/17/21 05:30: Neutrophils (%) (Auto) , Nucleated Red Blood Cells % (auto) 0.0, Neutrophils 44, Lymphocytes (Manual) 41, Monocytes (Manual) 8H, Eosinophils (Manual) 2, Basophils (Manual) 4H, Atypical Lymphocytes 1, Anisocytosis 1+, Platelet Estimate NORMAL, Anion Gap 5L, Glomerular Filtration Rate > 60.0, Calcium Level 8.6L CBC/BMP Laboratory Tests 04/17/21 05:30 Microbiology Microbiology 04/13/21 Urine Culture - Final, Complete 04/13/21 Blood Culture - Preliminary, Resulted No Growth after 72 hours. All specime... 04/13/21 Blood Culture - Final, Complete Staphylococcus Epidermidis AMANDA CM MD Apr 17, 2021 10:34
[2021-04-17 14:00] VITALS: BP 127/90
[2021-04-18] MEDS: LEVOTHYROXINE 50MCG TABLET (0.05MG) PO SCH (05:18)
[2021-04-18 06:41] LABS: HEMATOCRIT 23.1 % (36.0-47.0); MEAN CORPUSCULAR HEMOGLOBIN 33.1 pg (27.0-33.0); MEAN CORPUSCULAR HGB CONC 34.6 g/dl (32.0-36.5); MEAN CORPUSCULAR VOLUME 95.5 fl (80.0-96.0); PLATELET COUNT, AUTOMATED 243 10^3/uL (150-450); RED BLOOD COUNT 2.42 10^6/uL (4.00-5.40); WHITE BLOOD COUNT 4.4 10^3/uL (4.0-10.0)
[2021-04-18 07:07] LABS: EOSINOPHILS 3 % (0-3); LYMPHOCYTES 37 % (16-44); MONOCYTES 3 % (0-5); NEUTROPHILS 57 % (28-66); PLATELET ESTIMATE NORMAL (NORMAL)
[2021-04-18 07:08] LABS: BLOOD UREA NITROGEN 13 MG/DL (7-18); CALCIUM LEVEL 8.3 MG/DL (8.8-10.2); CARBON DIOXIDE LEVEL 27 MEQ/L (21-32); CHLORIDE LEVEL 109 MEQ/L (98-107); CREATININE FOR GFR 0.48 MG/DL (0.55-1.30); GLOMERULAR FILTRATION RATE > 60.0 (>39); GLUCOSE, FASTING 98 MG/DL (70-100); POTASSIUM SERUM 3.7 MEQ/L (3.5-5.1); SODIUM LEVEL 142 MEQ/L (136-145)
[2021-04-18 09:51] LABS: FERRITIN 142 NG/ML (8-252); IRON (FE) 45 UG/DL (50-170); PERCENT SATURATION 18.9 % (13.2-45.0); TOTAL IRON BINDING CAPACITY 238 UG/DL (250-450)
[2021-04-18] MEDS: DONEPEZIL 5 MG TAB PO SCH (10:01)
[2021-04-18] MEDS: OMEPRAZOLE 20 MG CAP PO SCH (10:01)
[2021-04-18] MEDS: ENOXAPARIN 60MG/0.6ML SYRINGE (J1650 PER 10MG) SC SCH ×2 (10:02→20:14)
[2021-04-18 14:00] VITALS: BP 146/89
--- NOTE | 2021-04-18 14:56 | IPN ---
PROGRESS NOTE DATE: 04/17/2021 Patient denies any lightheadedness or dizziness. She is eating her breakfast at the bedside and drinking her orange juice without signs of aspiration. Patient denies any fever, chills, shortness of breath, chest pain, pressure, or tightness, lightheadedness, or dizziness. VITAL SIGNS: Temperature 97.2, pulse 94, respiratory rate 20, blood pressure 148/70, 97% on room air. GENERAL: Patient is awake, alert, oriented to person, place, and time, answering questions appropriately. LUNGS: Clear to auscultation. No wheezing, rales, or rhonchi., HEART: S1, S2, sinus rhythm. Episodes of sinus tachycardia. ABDOMEN: Soft, nontender, nondistended. EXTREMITIES: No cyanosis or clubbing. LABORATORY DATA: Microbiology and imaging studies have been reviewed. ASSESSMENT AND PLAN: A 71-year-old female who lives at [facility] with a history of reflux, hypothyroidism, was found lying in the back seat of her car for unknown duration of time. Found to have left peroneal deep venous thrombosis (DVT) and bilateral pulmonary embolism, most likely provoked from lying down in the car for 2 days with dehydration. IMPRESSION: 1. Left peroneal vein occlusive thrombus. 2. Provoked bilateral pulmonary emboli (PE). 3. Left peroneal deep venous thrombosis (DVT). 4. Hypernatremia. 5. Dehydration. 6. Acute hypoxemic respiratory failure secondary to PE. 7. Anemia, which is macrocytic. 8. Acute metabolic encephalopathy in the setting of chronic memory issues. 9. Parkinsonism with dementia, most likely Lewy body dementia per neurologist, Dr. Whipple, with trial of donepezil. PLAN: Patient will need placement due to worsening dementia, most likely Lewy body. She is currently on Lovenox for bilateral PE/DVT. Continue all other home medications. Patient is awaiting placement. She is continued on her home dose of levothyroxine. Monitor patient for worsening anemia.
[2021-04-18 22:00] VITALS: BP 112/73
[2021-04-19] VITALS (10 sets, daily range): BP systolic 126–140; BP diastolic 77–94
[2021-04-19] MEDS: LEVOTHYROXINE 50MCG TABLET (0.05MG) PO SCH (05:46)
[2021-04-19 06:33] LABS: BASO % 0.2 % (0.0-1.0); EOS # 0.1 10^3/uL (0.0-0.5); EOS % 1.7 % (0.0-3.0); HEMATOCRIT 22.9 % (36.0-47.0); HEMOGLOBIN 7.8 g/dl (12.0-15.5); LYMPH # 1.4 10^3/uL (1.5-5.0); LYMPH % 32.5 % (24.0-44.0); MEAN CORPUSCULAR HEMOGLOBIN 33.1 pg (27.0-33.0); MEAN CORPUSCULAR HGB CONC 34.1 g/dl (32.0-36.5); MONO # 0.8 10^3/uL (0.0-0.8); MONO % 19.4 % (2.0-8.0); NEUTROPHILS # 1.9 10^3/uL (1.5-8.5); NEUTROPHILS % 46.2 % (36.0-66.0); PLATELET COUNT, AUTOMATED 280 10^3/uL (150-450); RED BLOOD COUNT 2.36 10^6/uL (4.00-5.40); WHITE BLOOD COUNT 4.2 10^3/uL (4.0-10.0)
[2021-04-19 06:53] LABS: BLOOD UREA NITROGEN 15 MG/DL (7-18); CALCIUM LEVEL 8.6 MG/DL (8.8-10.2); CARBON DIOXIDE LEVEL 26 MEQ/L (21-32); CHLORIDE LEVEL 109 MEQ/L (98-107); CREATININE FOR GFR 0.57 MG/DL (0.55-1.30); GLOMERULAR FILTRATION RATE > 60.0 (>39); GLUCOSE, FASTING 90 MG/DL (70-100); POTASSIUM SERUM 3.9 MEQ/L (3.5-5.1); SODIUM LEVEL 142 MEQ/L (136-145)
[2021-04-19] MEDS: DONEPEZIL 5 MG TAB PO SCH (10:25)
[2021-04-19] MEDS: OMEPRAZOLE 20 MG CAP PO SCH (10:25)
[2021-04-19] MEDS: ENOXAPARIN 60MG/0.6ML SYRINGE (J1650 PER 10MG) SC SCH ×2 (10:26→21:36)
[2021-04-19 11:00] LABS: DRVV SCREEN 49.7 SEC
[2021-04-19 11:01] LABS: PTT LUPUS TYPE ANTICOAG SCREEN 1.3 (0-1.2)
[2021-04-19 11:08] LABS: DRVV CONFIRM 44.6 SEC; LUPUS CONFIRM RATIO 1.2
[2021-04-19 11:09] LABS: NORMALIZED RATIO 1.08 (0.00-1.20)
--- NOTE | 2021-04-19 11:13 | IPNPDOC ---
Date Seen The patient was seen on 04/19/21. Progress Note S: tachycardic but denies palpitations, dizziness or lightheadedness compliant w meds. supine in bed w/o sob, chest pain, tightness. no fever, chills or cough. despite anemia hgb<8, denies brbpr, melena or black tarry stools. stool for blood ordered but no sample given. O: PE VITAL SIGNS: see below GENERAL: Patient is awake, alert, oriented to person, place, and time, answering questions appropriately. pale . no icterus or jaundice LUNGS: Clear to auscultation. No wheezing, rales, or rhonchi., HEART: S1, S2, sinus rhythm. Episodes of sinus tachycardia. ABDOMEN: Soft, nontender, nondistended. EXTREMITIES: No cyanosis or clubbing. LABORATORY DATA: Microbiology and imaging studies have been reviewed. ASSESSMENT AND PLAN: A 71-year-old female who lives at [facility] with a history of reflux, hypothyroidism, was found lying in the back seat of her car for unknown duration of time. Found to have left peroneal deep venous thrombosis (DVT) and bilateral pulmonary embolism, most likely provoked from lying down in the car for 2 days with dehydration. IMPRESSION: 1. Left peroneal vein occlusive thrombus. 2. Provoked bilateral pulmonary emboli (PE). 3. Left peroneal deep venous thrombosis (DVT). 4. Hypernatremia. 5. Dehydration. 6. Acute hypoxemic respiratory failure secondary to PE. 7. Anemia, which is macrocytic. 8. Acute metabolic encephalopathy in the setting of chronic memory issues. 9. Parkinsonism with dementia, most likely Lewy body dementia per neurologist, Dr. Whipple, with trial of donepezil. PLAN: pt is demented and unable to give consent for blood transfusion. daughter Edwige contacted by phone and 3 messages left . [phone]. pfs consulted to assist in obtaining emergency contact information to get consent for treatment. since pt has not had a bowel movment and stool for blood unavailable, will continue anticoagulant for dvt/pe. if positive for blood, will need ivc filter, and treatment w ppi and carafate. not medically stable for egd colonoscopy, but may need to be done if pt ends up requiring multiple blood transfusions or overt gi bleed is seen. VS, I&O, 24H, Fishbone Vital Signs/I&O Vital Signs Date Time Temp Pulse Resp B/P (MAP) Pulse Ox O2 Delivery O2 Flow Rate FiO2 04/19/21 06:00 97.4 126 20 130/89 (103) 94 Room Air 04/16/21 08:00 2.0 I&O- Last 24 Hours up to 6 AM 04/19/21 06:00 Intake Total 990 ml Output Total 475 ml Balance 515 ml Laboratory Data 24H LABS Laboratory Tests 2 04/19/21 06:07: Immature Granulocyte % (Auto) 0.0, Neutrophils (%) (Auto) 46.2, Lymphocytes (%) (Auto) 32.5, Monocytes (%) (Auto) 19.4H, Eosinophils (%) (Auto) 1.7, Basophils (%) (Auto) 0.2, Neutrophils # (Auto) 1.9, Lymphocytes # (Auto) 1.4L, Monocytes # (Auto) 0.8, Eosinophils # (Auto) 0.1, Basophils # (Auto) 0.0, Nucleated Red Blood Cells % (auto) 0.0, Anion Gap 7L, Glomerular Filtration Rate > 60.0, Calcium Level 8.6L CBC/BMP Laboratory Tests 04/19/21 06:07 Microbiology Microbiology 04/13/21 Urine Culture - Final, Complete 04/13/21 Blood Culture - Final, Complete NO GROWTH AFTER 5 DAYS 04/13/21 Blood Culture - Final, Complete Staphylococcus Epidermidis ALESSANDRO MOCK MD Apr 19, 2021 11:13
[2021-04-19 17:07] LABS: ANCA-ATYPICAL <1:20 titer (Neg:<1:20); ANTI THROMBIN 3 ANTIGEN IMMUNO 83 % (72-124); ANTI THROMBIN 3 FUNCT ACTIVITY 97 % (75-135); ANTINUCLEAR ANTIBODIES DIRECT Negative (Negative); CARDIOLIPIN IGA ANTIBODY <9 APL U/mL (0-11); CARDIOLIPIN IGG ANTIBODY <9 GPL U/mL (0-14); CARDIOLIPIN IGM ANTIBODY <9 MPL U/mL (0-12); CYTOPLASMIC NEUTROP AB ANCA-C <1:20 titer (Neg:<1:20); HOMOCYST(E)INE SERUM 28.6 umol/L (0.0-19.2); PERINUCLEAR AB ANCA-P <1:20 titer (Neg:<1:20); PROTEIN C ANTIGEN 77 % (60-150); PROTEIN S ANTIGEN FREE 59 % (57-157); PROTEIN S ANTIGEN TOTAL 69 % (60-150); SJOGREN'S ANTI SS-A <0.2 AI (0.0-0.9); SJOGREN'S ANTI SS-B <0.2 AI (0.0-0.9)
[2021-04-19] MEDS ORDERED: METOPROLOL TART 25 MG TABLET PO ONE (18:00)
[2021-04-19 20:48] LABS: HEMATOCRIT 28.5 % (36.0-47.0); HEMOGLOBIN 9.8 g/dl (12.0-15.5)
--- NOTE | 2021-04-19 21:38 | ECGEPIP ---
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 Electronically Signed on 04-19-2021 21:38:08 EDT by Roberto Randhawa
[2021-04-20] MEDS: LEVOTHYROXINE 50MCG TABLET (0.05MG) PO SCH (05:22)
[2021-04-20 06:00] VITALS: BP 131/70
[2021-04-20 06:45] LABS: BASO % 0.3 % (0.0-1.0); EOS # 0.1 10^3/uL (0.0-0.5); EOS % 2.1 % (0.0-3.0); HEMATOCRIT 29.4 % (36.0-47.0); LYMPH # 1.4 10^3/uL (1.5-5.0); LYMPH % 38.3 % (24.0-44.0); MEAN CORPUSCULAR HEMOGLOBIN 32.5 pg (27.0-33.0); MEAN CORPUSCULAR VOLUME 95.5 fl (80.0-96.0); MONO # 0.7 10^3/uL (0.0-0.8); MONO % 19.1 % (2.0-8.0); NEUTROPHILS # 1.5 10^3/uL (1.5-8.5); NEUTROPHILS % 39.4 % (36.0-66.0); PLATELET COUNT, AUTOMATED 331 10^3/uL (150-450); RED BLOOD COUNT 3.08 10^6/uL (4.00-5.40); WHITE BLOOD COUNT 3.8 10^3/uL (4.0-10.0)
[2021-04-20 07:10] LABS: BLOOD UREA NITROGEN 13 MG/DL (7-18); CALCIUM LEVEL 8.4 MG/DL (8.8-10.2); CARBON DIOXIDE LEVEL 27 MEQ/L (21-32); CHLORIDE LEVEL 108 MEQ/L (98-107); CREATININE FOR GFR 0.56 MG/DL (0.55-1.30); GLOMERULAR FILTRATION RATE > 60.0 (>39); GLUCOSE, FASTING 93 MG/DL (70-100); POTASSIUM SERUM 3.9 MEQ/L (3.5-5.1); SODIUM LEVEL 140 MEQ/L (136-145)
[2021-04-20] MEDS: ENOXAPARIN 60MG/0.6ML SYRINGE (J1650 PER 10MG) SC SCH ×2 (08:41→20:36)
[2021-04-20] MEDS: DONEPEZIL 5 MG TAB PO SCH (08:41)
[2021-04-20] MEDS: OMEPRAZOLE 20 MG CAP PO SCH (08:41)
--- NOTE | 2021-04-20 11:51 | IPNPDOC ---
Date Seen The patient was seen on 04/20/21. Progress Note S: Patient became tachycardic yesterday after the first unit of RBC transfusion EKG had no acute ischemia she was given 1 dose of metoprolol with improvement patient is demented and difficult to get review of system but currently denies any chest pain pressure tightness shortness of breath lightheadedness or dizziness this morning O: PE VITAL SIGNS: see below GENERAL: No pallor awake alert oriented to herself only No distress no icterus or jaundice LUNGS: Diminished HEART: S1, S2, sinus rhythm. Episodes of sinus tachycardia. ABDOMEN: Soft, nontender, nondistended. EXTREMITIES: No cyanosis or clubbing. LABORATORY DATA: Microbiology and imaging studies have been reviewed. ASSESSMENT AND PLAN: A 71-year-old female who lives at [facility] with a history of reflux, hypothyroidism, was found lying in the back seat of her car for unknown duration of time. Found to have left peroneal deep venous thrombosis (DVT) and bilateral pulmonary embolism, most likely provoked from lying down in the car for 2 days with dehydration. IMPRESSION: 1. Left peroneal vein occlusive thrombus. 2. Provoked bilateral pulmonary emboli (PE). 3. Left peroneal deep venous thrombosis (DVT). 4. Hypernatremia. Resolved 5. Dehydration. Resolved 6. Acute hypoxemic respiratory failure secondary to PE. 7. Anemia, which is macrocytic. 8. Acute metabolic encephalopathy in the setting of chronic memory issues. 9. Parkinsonism with dementia, most likely Lewy body dementia per neurologist, Dr. Whipple, with trial of donepezil. 10. Sinus tachycardia during blood transfusion PLAN: Patient started given consent for blood transfusion status post 2 units of RBCs yesterday with improvement in her hemoglobin hematocrit. She has been started on Protonix and Carafate for presumed GI bleed in the setting of anticoagulation for PE DVT but no stool for blood has been sent yet. If the patient develops acute GI bleed with melena or black tarry stools hematemesis she will need an IVC filter placement. Continue on anticoagulation for DVT PE she will need placement due to progressive Dementia requiring assistance with her ADLs. VS, I&O, 24H, Fishbone Vital Signs/I&O Vital Signs Date Time Temp Pulse Resp B/P (MAP) Pulse Ox O2 Delivery O2 Flow Rate FiO2 04/20/21 06:00 97.7 97 19 131/70 (90) 95 Room Air 04/16/21 08:00 2.0 I&O- Last 24 Hours up to 6 AM 04/20/21 06:00 Intake Total 2440 ml Output Total 0 ml Balance 2440 ml Laboratory Data 24H LABS Laboratory Tests 2 04/20/21 06:28: Immature Granulocyte % (Auto) 0.8, Neutrophils (%) (Auto) 39.4, Lymphocytes (%) (Auto) 38.3, Monocytes (%) (Auto) 19.1H, Eosinophils (%) (Auto) 2.1, Basophils (%) (Auto) 0.3, Neutrophils # (Auto) 1.5, Lymphocytes # (Auto) 1.4L, Monocytes # (Auto) 0.7, Eosinophils # (Auto) 0.1, Basophils # (Auto) 0.0, Nucleated Red Blood Cells % (auto) 0.0, Anion Gap 5L, Glomerular Filtration Rate > 60.0, Calcium Level 8.4L CBC/BMP Laboratory Tests 04/19/21 20:05 04/20/21 06:28 Microbiology Microbiology 04/20/21 Stool Occult Blood (TIFFANIE) - Final, Complete 04/13/21 Urine Culture - Final, Complete 04/13/21 Blood Culture - Final, Complete NO GROWTH AFTER 5 DAYS 04/13/21 Blood Culture - Final, Complete Staphylococcus Epidermidis ALESSANDRO MOCK MD Apr 20, 2021 11:51
[2021-04-20] MEDS: SUCRALFATE SUSP 1GM/10ML UD PO SCH ×3 (12:16→20:35)
[2021-04-20 14:00] VITALS: BP 145/83
[2021-04-20] MEDS: METOPROLOL TART 25 MG TABLET PO PRN (18:48)
[2021-04-20 22:00] VITALS: BP 124/78
[2021-04-21 06:00] VITALS: BP 151/101
[2021-04-21] MEDS: LEVOTHYROXINE 50MCG TABLET (0.05MG) PO SCH (06:00)
[2021-04-21 06:17] VITALS: BP 118/64
[2021-04-21] MEDS: OMEPRAZOLE 20 MG CAP PO SCH (08:28)
[2021-04-21] MEDS: SUCRALFATE SUSP 1GM/10ML UD PO SCH ×4 (08:28→20:47)
[2021-04-21] MEDS: ENOXAPARIN 60MG/0.6ML SYRINGE (J1650 PER 10MG) SC SCH ×2 (08:29→20:48)
[2021-04-21] MEDS: DONEPEZIL 5 MG TAB PO SCH (08:29)
--- NOTE | 2021-04-21 14:36 | IPN ---
PROGRESS NOTE DATE: 04/21/2021 SUBJECTIVE: Per nursing, patient appeared to be slightly altered with her mentation, not making sense or responding at times and sometimes slightly active. She has baseline tremors of her chin and lips. Recently started on Aricept for Alzheimer's dementia and possible Lewy body dementia with worsening, awaiting placement. Patient was tachycardic, given metoprolol, with no complaints of dizziness or lightheadedness. This morning, patient says "I'm okay." Denies any chest pain, pressure, tightness or shortness of breath, fever chills or cough. PHYSICAL EXAMINATION: Temperature 97.2, pulse 73-121 sinus tachycardia, respiratory rate 18, blood pressure 118/64, 94% on room air. GENERAL: Demented. Awake, alert, oriented to herself only. Patient does not converse well, says yes or no, I am all right, but no other complex sentences. HEENT: No jugular venous distention (JVD). No thyromegaly. No cervical lymphadenopathy. LUNGS: Diminished, but clear to auscultation. HEART: S1, S2. Sinus tachycardia. ABDOMEN: Soft, nontender, nondistended. EXTREMITIES: No cyanosis or clubbing. LABORATORY DATA: Laboratory data, imaging studies, microbiology all have been reviewed. ASSESSMENT: This is a 71-year-old female who previously lived at [facility] admitted after being found sleeping in her car for unknown duration at the time, found to have bilateral pulmonary emboli and left peroneal deep venous thrombosis (DVT). ACTIVE ISSUES: 1. Left peroneal occlusive thrombus provoked by lateral pulmonary embolism (PE). 2. Hypernatremia and dehydration, resolved. 3. Acute hypoxic respiratory failure secondary to bilateral PE. 4. Sinus tachycardia and multifocal atrial tachycardia (MAT) secondary to bilateral PE. No signs of atrial fibrillation or atrial flutter. Currently on Lovenox. 5. Acute encephalopathy in the setting of chronic memory loss. 6. Parkinsonism with dementia and Lewy body dementia. Also being treated for Alzheimer's dementia with Aricept. 7. Anemia requiring blood transfusion with no overt gastrointestinal (GI) bleed. PLAN: Patient may be changed to alternate level of care (ALC) status. Monitor hemoglobin and hematocrit three times a week. If over GI bleed, patient may need an inferior vena cava (IVC) filter. She currently is unstable, with bilateral PE and unsafe to undergo an esophagogastroduodenoscopy (EGD) at this time. Continue all other present management for now. Awaiting placement to a senior care. JOEL
[2021-04-21 20:50] VITALS: BP 143/77
[2021-04-21] MEDS: METOPROLOL TART 25 MG TABLET PO PRN (20:55)
[2021-04-22 06:00] VITALS: BP 144/79
[2021-04-22] MEDS: DONEPEZIL 5 MG TAB PO SCH (08:46)
[2021-04-22] MEDS: OMEPRAZOLE 20 MG CAP PO SCH (08:46)
[2021-04-22] MEDS: SUCRALFATE SUSP 1GM/10ML UD PO SCH ×4 (08:46→20:02)
[2021-04-22] MEDS: ENOXAPARIN 60MG/0.6ML SYRINGE (J1650 PER 10MG) SC SCH ×2 (08:47→20:02)
[2021-04-22] MEDS: LEVOTHYROXINE 100MCG (0.1MG) VIAL IV SCH (08:47)
[2021-04-22] MEDS ORDERED: LEVALBUTEROL 1.25 MG/0.5 ML CONCENTRATE NEB INH PRN (09:10)
--- NOTE | 2021-04-22 09:31 | IPN ---
PROGRESS NOTE DATE: 04/22/2021 SUBJECTIVE: The patient was tachycardic yesterday, but denied any chest pain, pressure, tightness, palpitations, lightheadedness, or dizziness. Still with confusion, but appropriate at times and answers questions today regarding herself and how she feels. She says "I feel okay." No shortness of breath, chest pain, pressure, tightness, palpitations, lightheadedness, or dizziness. OBJECTIVE: VITAL SIGNS: Temperature 97, pulse 79; had episodes of 125 sinus tachycardia yesterday. Respiratory rate 19, blood pressure 144/79, 92% to 95% on room air. GENERAL: The patient is awake, alert, and oriented to herself only. In no distress or use of respiratory accessory muscles. Resting tremors of her chin. NECK: No JVD, thyromegaly, or cervical lymphadenopathy. LUNGS: Diminished. No wheezing or rales. HEART: S1, S2. Sinus rhythm. Episodes of sinus tachycardia. ABDOMEN: Soft, nontender, and nondistended. EXTREMITIES: No cyanosis or clubbing. DIAGNOSTIC STUDIES: Laboratory data, microbiology, and imaging studies have all been reviewed. ASSESSMENT: This is a 71-year-old female who previously lived [facility] admitted after being found sleeping in her car for an unknown duration of time found to have bilateral pulmonary embolism and left peroneal deep vein thrombosis (DVT). Current issues: 1. Left peroneal DVT and bilateral pulmonary embolus (PE) on Lovenox renally dosed. 2. Hypernatremia and dehydration, resolved. 3. Acute hypoxic respiratory failure due to bilateral PE. Keep saturation above 90%. 4. Sinus tachycardia secondary to bilateral PE. P.r.n. Metoprolol for heart rate greater than 120. 5. Acute encephalopathy in the setting of chronic memory loss with baseline parkinsonism with dementia and Lewy body dementia also being treated for Alzheimer's dementia with Aricept. Will need placement. 6. Anemia requiring red blood cells (RBC) transfusion. No overt gastrointestinal (GI) bleed status post two units of RBCs currently under alternate level of care (ALC) status awaiting placement. [facility]
[2021-04-22 11:54] VITALS: BP 142/76
[2021-04-22] MEDS: METOPROLOL TART 25 MG TABLET PO PRN ×2 (12:02→18:49)
[2021-04-22] MEDS ORDERED: METOPROLOL TART 25 MG TABLET PO ONE (12:15)
[2021-04-22 17:45] VITALS: BP 146/92
[2021-04-22 18:49] VITALS: BP 146/92
[2021-04-22] MEDS ORDERED: FUROSEMIDE 20MG/2ML VIAL (J1940) IV ONE (19:30)
[2021-04-22 22:35] VITALS: BP 134/73
[2021-04-23 06:05] VITALS: BP 124/74
[2021-04-23] MEDS: LEVOTHYROXINE 100MCG (0.1MG) VIAL IV SCH (08:37)
[2021-04-23] MEDS: ENOXAPARIN 60MG/0.6ML SYRINGE (J1650 PER 10MG) SC SCH ×2 (08:37→20:19)
[2021-04-23] MEDS: SUCRALFATE SUSP 1GM/10ML UD PO SCH ×4 (08:37→20:19)
[2021-04-23] MEDS: DONEPEZIL 5 MG TAB PO SCH (08:38)
[2021-04-23] MEDS: OMEPRAZOLE 20 MG CAP PO SCH (08:38)
--- NOTE | 2021-04-23 18:49 | IPN ---
PROGRESS NOTE DATE: 04/23/2021 SUBJECTIVE: The patient had a bowel movement yesterday, says that her abdomen feels much better today. No nausea or vomiting. No cough, shortness of breath, fever or chills. OBJECTIVE: PHYSICAL EXAMINATION: VITAL SIGNS: Temperature 97.2, pulse 74, respiratory rate 18, blood pressure 124/74, oxygen saturation 96% on room air. GENERAL APPEARANCE: The patient is awake, alert, oriented to herself only. She answers questions appropriately. NECK: No JVD, no thyromegaly, no cervical lymphadenopathy. LUNGS: Diminished. HEART: S1, S2, sinus tachycardia. ABDOMEN: Soft, nontender, nondistended. Positive bowel sounds. EXTREMITIES: No clubbing, cyanosis, or pitting edema. LABORATORY DATA: Laboratory data of 04/20 have been reviewed. ASSESSMENT: This is a 71-year-old who previously lived at home alone, [place], found to be sleeping in her car for unknown duration of time. She was found to have bilateral pulmonary embolism with a left deep peritoneal DVT. The patient has had sinus tachycardia during this admission and has had worsening dementia and acute delirium. IMPRESSION AND PLAN: 1. Left peritoneal DVT. 2. Bilateral P.E. on Lovenox, renally dosed. 3. Hypernatremia and dehydration as a result. 4. Acute hypoxemic respiratory failure due to P.E. on supplemental oxygen as needed to keep 02 sats greater than 90%. 5. Sinus tachycardia due to P.E. on p.r.n. Metoprolol for comfort. 6. Acute encephalopathy in the setting of chronic memory loss. 7. Parkinsonism with dementia and Lewy Body dementia - currently managed by Nephrology. 8. Anemia requiring RBC transfusion. 9. Overt GI bleed. 10. Currently ALC status. MTDD
[2021-04-24 06:00] VITALS: BP 140/84
[2021-04-24] MEDS: ENOXAPARIN 60MG/0.6ML SYRINGE (J1650 PER 10MG) SC SCH ×2 (08:12→20:18)
[2021-04-24] MEDS: DONEPEZIL 5 MG TAB PO SCH (08:12)
[2021-04-24] MEDS: OMEPRAZOLE 20 MG CAP PO SCH (08:12)
[2021-04-24] MEDS: SUCRALFATE SUSP 1GM/10ML UD PO SCH ×4 (08:12→20:18)
[2021-04-24 09:38] LABS: HEMATOCRIT 29.4 % (36.0-47.0); MEAN CORPUSCULAR HEMOGLOBIN 33.4 pg (27.0-33.0); MEAN CORPUSCULAR VOLUME 98.3 fl (80.0-96.0); PLATELET COUNT, AUTOMATED 404 10^3/uL (150-450); RED BLOOD COUNT 2.99 10^6/uL (4.00-5.40); WHITE BLOOD COUNT 3.3 10^3/uL (4.0-10.0)
[2021-04-24 10:00] LABS: BLOOD UREA NITROGEN 14 MG/DL (7-18); CALCIUM LEVEL 8.9 MG/DL (8.8-10.2); CARBON DIOXIDE LEVEL 26 MEQ/L (21-32); CHLORIDE LEVEL 105 MEQ/L (98-107); GLOMERULAR FILTRATION RATE > 60.0 (>39); GLUCOSE, FASTING 131 MG/DL (70-100); SODIUM LEVEL 141 MEQ/L (136-145)
[2021-04-24] MEDS: LEVOTHYROXINE 50MCG TABLET (0.05MG) PO SCH (13:29)
[2021-04-25] MEDS: LEVOTHYROXINE 50MCG TABLET (0.05MG) PO SCH (05:36)
[2021-04-25 06:00] VITALS: BP 131/81
[2021-04-25] MEDS: SUCRALFATE SUSP 1GM/10ML UD PO SCH ×4 (07:30→20:54)
[2021-04-25] MEDS: OMEPRAZOLE 20 MG CAP PO SCH (09:58)
[2021-04-25] MEDS: DONEPEZIL 5 MG TAB PO SCH (09:58)
[2021-04-25] MEDS: ENOXAPARIN 60MG/0.6ML SYRINGE (J1650 PER 10MG) SC SCH ×2 (09:58→20:54)
--- NOTE | 2021-04-25 13:58 | IPNPDOC ---
Subjective Date Seen The patient was seen on 04/25/21. Subjective Chief Complaint/HPI Mrs. Hughes is a 71 year old female with hypothyroidism here with AMS, acute hypoxic respiratory failure, and pulmonary embolism. This morning, she was slow to answer, but denies chest pain or dyspnea. Plan for [facility] for tomorrow. Objective Physical Examination General Exam: Positive: Alert, Cooperative, No Acute Distress Eye Exam: Positive: EOMI; Negative: Sclera icteric Neck Exam: Positive: Supple Chest Exam: Positive: Clear to auscultation, Normal air movement Heart Exam: Positive: Rate Normal, Regular Rhythm, Normal S1, Normal S2 Abdomen Exam: Positive: Normal bowel sounds, Soft Extremity Exam: Negative: Clubbing, Cyanosis, Edema Assessment /Plan Assessment Mrs. Hughes is a 71 year old female with hypothyroidism here with AMS, acute hypoxic respiratory failure, and pulmonary embolism. Patient has improve and has been stabilized. Patient will need at least 3 months of anticoagulation. Neurology evaluated patient. Most likely has Lewy body dementia. Patient was started on donepezil. If given Sinemet, it may worsen her cognition in the setting of Lewy body dementia Plan/VTE VTE Prophylaxis Ordered?: Yes Plan 1. Bilateral pulmonary embolism and left peroneal DVT -Potentially provoked from laying in one position for about 2 days -Renally dosed Lovenox -Will need for at least 3 months of anticoagulation -Hypercoagulably work up negative 2. Acute hypoxic respiratory failure -Secondary to PE -Now resolved 3. Acute metabolic encephalopathy in the setting of Lewy body dementia -Most likely due to dehydration and hypoxia -CT head negative -Improved 4. Lewy body dementia -Neurology, Dr. Whipple, consulted. Recommendations appreciated -Trial of donepezil 5. DVT ppx -On Lovenox Disposition: Anticipating discharge to [facility] tomorrow VS, I&O, 24H, Fishbone Vital Signs/I&O Vital Signs Date Time Temp Pulse Resp B/P (MAP) Pulse Ox O2 Delivery O2 Flow Rate FiO2 04/25/21 06:00 97.1 114 18 131/81 (98) 96 Room Air I&O- Last 24 Hours up to 6 AM 04/25/21 06:00 Intake Total 1270 ml Output Total 200 ml Balance 1070 ml Laboratory Data 24H LABS Laboratory Tests 2 04/25/21 12:36: Coronavirus (COVID-19)(PCR) NEGATIVE Microbiology Microbiology 04/20/21 Stool Occult Blood (TIFFANIE) - Final, Complete SUSSY THACKER DO Apr 25, 2021 13:58
[2021-04-25] MEDS: SANTYL OINT 30GM TOP SCH (20:56)
[2021-04-26] MEDS: LEVOTHYROXINE 50MCG TABLET (0.05MG) PO SCH (05:35)
[2021-04-26 06:00] VITALS: BP 143/78
[2021-04-26] MEDS ORDERED: SANT250O8 TOP (08:39)
[2021-04-26] MEDS ORDERED: ARIC1TAB PO (08:39)
[2021-04-26] MEDS ORDERED: LOVE0.4I2 SC (08:43)
--- NOTE | 2021-04-26 08:48 | DS.PDOC ---
Discharge Summary General Date of Admission Apr 13, 2021 at 15:47 Date of Discharge Apr 26, 2021 Specialist/Consultants Involve Neurology, Dr. Whipple Discharge Summary PROCEDURES PERFORMED DURING STAY: None. ADMITTING DIAGNOSES: 1. Provoked bilateral PE 2. Left peroneal and left profunda occlusive thrombus 3. Acute hypoxic respiratory failure 4. Dehydration 5. Anemia 6. Acute metabolic encephalopathy 7. Lewy body dementia DISCHARGE DIAGNOSES: 1. Provoked bilateral PE 2. Left peroneal and left profunda occlusive thrombus 3. Acute hypoxic respiratory failure 4. Dehydration 5. Anemia 6. Acute metabolic encephalopathy 7. Lewy body dementia COMPLICATIONS/CHIEF COMPLAINT: Ams, Pulmonary Embolism. HISTORY OF PRESENT ILLNESS: Copied from admitting provider's H&P " 71 year old female a resident of [facility] was brought to [facility] ED when she was found laying in the back seat of her car for unknown duration of time. Brother last saw her of 04/10/21. No one had spoken to her in the last 2 days and she had not picked up her phone. Patient had an upcoming appointment with PMD next week so brother went to her place to see if she needed blood tests done before the appointment and found that he could not get into her place and she would not answer the door. He called the global marketing manager of the [facility] and then the door was opened and she was found laying on the back seat of her car. They could not get her out of the car so called EMS. As per brother patient has been having memory issues for the past 2 months. He and his daughter who is also the patient's second HCP had a meeting with the [facility] management as they had seen her walking around dirty, ungroomed and her apartment has been dirty and she has not been able to maintain it properly. The management wanted her to be moved to assisted living. Patient's mother in 2014 and after that she moved from [place] to [facility]. However she had not maintained any contact with her family till about 6 months ago when she started attending Saturday dinners at her brother's place. She has an upcoming appointment with neurology for evaluation for dementia. On my interview she just repeated my name could recognize her brother and tell me his name. Said no to some direct questions. Did not says any thing else. soon became uninterested and closed her eyes. No history could be gotten fromvega carrasco . All history take from brothr and the ED staff. On arrival to ED she was found to be tachycardic in 120s, hypoxic to 80% in room air, Labs were also suggestive of dehydration with BUN and elevated calcium and elevated lactate. She was dirty and disheveled , had depends on with some urine and stool in it. She was also noted to have pressure injuries on the bony prominences of the left side of the body. CTA of the chest showed bilateral pulmonary embolism. CT of the abdomen and pelvis was negative. CT head There is no acute intracranial hemorrhage or mass effect. Moderate diffuse volume loss is within the range of normal for patient age. There are small vessel ischemic changes within the periventricular and subcortical white matter, but the normal luna-white matter delineation is maintained. Chronic appearing lacunar infarcts involve the left basal ganglia " HOSPITAL COURSE: Initially patient required 4L of oxygen, but during hospital course, patient was weaned off of oxygen. Patient was evaluated by neurology for the decrease in activity. Suspected that patient has Lewy body dementia and patient was started on donepezil. Otherwise, patient was also found to have DVT in left leg. It was suspected that due to patient's decreased mobility, patient developed a DVT and PE. Due to hypoxia from PE and dehydration, patient developed acute metabolic encephalopathy. Patient hypoxia and dehydration resolved and she has been doing better. This morning, she denies any chest pain or dyspnea. Patient will be send to [facility]. Patient should follow up with neurology in 1 week. Patient will need to continue anticoagulation for at least 3 months from 04/13/21. DISCHARGE MEDICATIONS: Please see below. ALLERGIES: Please see below. PHYSICAL EXAMINATION ON DISCHARGE: VITAL SIGNS: Please see below. GENERAL: Comfortable, in no apparent distress HEENT: Head normocephalic, atraumatic NECK: Supple CARDIOVASCULAR EXAMINATION: Regular rate and rhythm RESPIRATORY EXAMINATION: Lungs clear to auscultation bilaterally ABDOMINAL EXAMINATION: Soft, non-tender, normal bowel sounds EXTREMITIES: No pitting edema bilaterally NEUROLOGICAL EXAMINATION: Bradykinesia PSYCHIATRIC EXAMINATION: Normal mood and affect LABORATORY DATA: Please see below. IMAGING: Radiologist interpretation CT angio chest FINDINGS: There is excellent visualization of the pulmonary arterial vasculature. There are multiple filling defects seen in multiple pulmonary arteries seen bilaterally but right greater than left. There are no pleural or pericardial effusions. There is no mediastinal or hilar adenopathy. Evaluation of the lung barnhart shows respiratory motion artifact and scattered asymmetric densities which could obscure small nodule. Curvilinear densities are seen in the left lung base. There are no spiculated masses. Bone window technique throughout the exam shows the osseous structures to be within normal limits for the patient's age. IMPRESSION: 1. Multiple pulmonary emboli as described above. 2. Chronic lung field changes as described above. Since are no priors comparison three-month follow-up is suggested. 3. Other findings as described above. US lower extremity bilaterally IMPRESSION: Occlusive thrombus left profunda vein and left peroneal veins. Otherwise no evidence of DVT bilaterally in the lower extremities. PROGNOSIS: Good ACTIVITY: As tolerated. DIET: Regular diet DISCHARGE PLAN: [facility] DISPOSITION: [facility] DISCHARGE INSTRUCTIONS: 1. Follow up with PCP within 1 week 2. Follow up with neurology, Dr. Whipple, in 1 weeks 3. Continue anticoagulation for at least 3 months from 04/13/21 ITEMS TO FOLLOWUP ON ON OUTPATIENT: 1. Follow up CT chest in 3 months to look for possible small pulmonary nodules. Recommendation per CT angio chest, please seen above. DISCHARGE CONDITION: Stable. Total time spent on discharge planning, discharge summary, and medication reconciliation: 55 minutes Vital Signs/I&Os Vital Signs Date Time Temp Pulse Resp B/P (MAP) Pulse Ox O2 Delivery O2 Flow Rate FiO2 04/25/21 06:00 97.1 114 18 131/81 (98) 96 Room Air I&O- Last 24 Hours up to 6 AM 04/25/21 06:00 Intake Total 1270 ml Output Total 200 ml Balance 1070 ml Laboratory Data Labs 24H Laboratory Tests 2 04/25/21 12:36: Coronavirus (COVID-19)(PCR) NEGATIVE Microbiology Microbiology 04/20/21 Stool Occult Blood (TIFFANIE) - Final, Complete Discharge Medications Scheduled Cholecalciferol (Vitamin D3) (Vitamin D3) 1,000 Unit Tablet, 1,000 UNITS PO DAILY, (Reported) Collagenase Clostridium Hist. (Santyl) 30 Gm Oint...g., 1 DOSE TOP DAILY Apply Santyl to wound base on left side Donepezil HCl (Aricept) 5 Mg Tablet, 10 MG PO DAILY Enoxaparin Sodium (Lovenox) 60 Mg/0.6 Ml Syringe, 60 MG SC Q12H Levothyroxine Sodium (Levothyroxine Sodium) 50 Mcg Tablet, 50 MCG PO QAM, (Reported) Mirtazapine (Remeron) 15 Mg Tablet, 15 MG PO QHS, (Reported) Omeprazole (Omeprazole) 20 Mg Capsule.dr, 20 MG PO DAILY, (Reported) Allergies Coded Allergies: No Known Allergies (Verified Allergy, Unknown, 04/13/21) SUSSY THACKER DO Apr 25, 2021 22:45
[2021-04-26] MEDS: ENOXAPARIN 60MG/0.6ML SYRINGE (J1650 PER 10MG) SC SCH (09:12)
[2021-04-26] MEDS: OMEPRAZOLE 20 MG CAP PO SCH (09:12)
[2021-04-26] MEDS: SUCRALFATE SUSP 1GM/10ML UD PO SCH (09:12)
[2021-04-26] MEDS: DONEPEZIL 5 MG TAB PO SCH (09:12)
[2021-04-26] MEDS: SANTYL OINT 30GM TOP SCH (09:13)
== END 2021-04-26 12:12 | DRG 175 ==
LOC: M ED 10:53 → EDBD 10:53 → M ED INP 15:47 → ENRESERV 16:23 → M PCU 18:35 → M MSPAV 04-16 19:04
PROVIDERS: ADMIT Internal Medicine Nephrology; ATTEND Internal Medicine
PROC: 30233N1 Transfusion of Nonautologous Red Blood Cells into Peripheral Vein, Percutaneous Approach (ICD-10-PCS; principal; 2021-04-19)
DX: I26.99 Other pulmonary embolism without acute cor pulmonale (principal); J96.01 Acute respiratory failure with hypoxia; G93.41 Metabolic encephalopathy; I82.890 Acute embolism and thrombosis of other specified veins; E87.0 Hyperosmolality and hypernatremia; G31.83 Neurocognitive disorder with Lewy bodies; E86.0 Dehydration; D64.9 Anemia, unspecified; Z79.899 Other long term (current) drug therapy